=== PATIENT | male | born 1940 | race Two or more races ===

== ENCOUNTER → 2016-12-21 | Outpatient (CLI) | payer MEDICARE, OTHER | LOC: MW.CHIM 08:00 | PROVIDERS: ATTEND Internal Medicine | DX: I25.10 Atherosclerotic heart disease of native coronary artery without angina pectoris (principal); G47.33 Obstructive sleep apnea (adult) (pediatric); R94.39 Abnormal result of other cardiovascular function study | CPT/HCPCS: G0463 ==

== ENCOUNTER 2018-11-08 09:31 | Emergency (ER) | payer MEDICARE, OTHER ==
[2018-11-08 09:46] VITALS: BP 128/64
--- NOTE | 2018-11-08 10:05 | EDM.PDOC ---
ED HPI GENERAL MEDICAL PROBLEM - General Chief Complaint: Back Pain or Injury Stated Complaint: BACK PAIN Time Seen by Provider: 11/08/18 09:57 Source of Information: Reports: Patient History Limitations: Reports: No Limitations - History of Present Illness INITIAL COMMENTS - FREE TEXT/NARRATIVE: HISTORY AND PHYSICAL: History of present illness: Patient is a 77-year-old male who presents to the emergency room with complaints of low back spasms. He states this is been going on for approximately 2-3 weeks. He did see a primary care provider on 10/22/18 for this complaint and he has tried 2 different medications without any relief. 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 He denies any trauma, falls or injury. Denies any urinary or fecal incontinence. Denies any numbness or tingling to his distal extremities. Denies any weakness. Review of systems: As per history of present illness and below otherwise all systems reviewed and negative. Past medical history: As per history of present illness and as reviewed below otherwise noncontributory. Surgical history: As per history of present illness and as reviewed below otherwise noncontributory. Social history: See social history for further information Family history: As per history of present illness and as reviewed below otherwise noncontributory. Physical exam: General: Well-developed and well-nourished 77-year-old male. Alert and oriented. Nontoxic appearing and in no acute distress. HEENT: Atraumatic, normocephalic, pupils equal and reactive bilaterally, negative for conjunctival pallor or scleral icterus, mucous membranes moist, TMs normal bilaterally, patient does have a cochlear implant (normal patient variance), throat clear, neck supple, nontender, trachea midline. No drooling or trismus noted. No meningeal signs. No hot potato voice noted. Lungs: Clear to auscultation, breath sounds equal bilaterally, chest nontender. Heart: S1S2, regular rate and rhythm without overt murmur Abdomen: Soft, nondistended, nontender. Negative for masses or hepatosplenomegaly. Negative for costovertebral tenderness. Pelvis: Stable nontender. Genitourinary: Deferred. Rectal: Deferred. Skin: Intact, warm, dry. No lesions or rashes noted. Extremities: Atraumatic, negative for cords or calf pain. Neurovascular unremarkable. Neuro: Awake, alert, oriented. Cranial nerves II through XII unremarkable. Cerebellum unremarkable. Motor and sensory unremarkable throughout. Exam nonfocal. Notes: X-ray shows mild degenerative changes without acute findings. Patient had previously tried Celebrex and Robaxin. Patient reports that he had minimal relief. Patient felt no relief with the Norflex IM. We discussed treatment options, anti -inflammatory versus muscle relaxer versus narcotic pain medications. Risks of each class were discussed. He states that the anti-inflammatories and muscle relaxers haven't seemed to help is pain. Bow will be prescribed with education. I encouraged them to follow-up with their primary care provider in the next week. He may need physical therapy. The patient/ voices understanding, states she will make an appointment for him. They deny any further questions or concerns at this time. Diagnostics: Lumbar spine x-ray Therapeutics: Norflex IM Prescription: Medrol Dosepak Bow Impression: Lumbago with sciatica Plan: 1. Gentle heat, stretching and range of motion exercises. 2. Take your medications as directed. Tylenol and/or ibuprofen as needed for pain management. 3. Please follow-up with your primary caregiver next week. You may want to consider doing physical therapy if pain continues. Return to the ED as needed and as discussed. Definitive disposition and diagnosis as appropriate pending reevaluation and review of above. Lower Back Pain Score (Numeric/FACES): 9 - Related Data Allergies Allergy/AdvReac Type Severity Reaction Status Date / Time No Known Allergies Allergy Verified 11/08/18 09:47 Home Meds: Home Meds Psyllium Husk [Metamucil] 1 dose PO DAILY 09/24/15 [History] Aspirin 1 tab PO DAILY 11/08/18 [History] Clopidogrel [Plavix] 75 mg PO DAILY 11/08/18 [History] Losartan [Cozaar] 12.5 mg PO DAILY 11/08/18 [History] Potassium Chloride 1 tab PO DAILY 11/08/18 [History] atorvaSTATin [Lipitor] 40 mg PO DAILY 11/08/18 [History] Past Medical History HEENT History: Reports: Hard of Hearing Other HEENT History: cochlear implant R side Cardiovascular History: Reports: High Cholesterol, Hypertension, Stents Respiratory History: Reports: Sleep Apnea Gastrointestinal History: Reports: Diverticulosis, GERD Genitourinary History: Reports: Renal Calculus Musculoskeletal History: Reports: None Neurological History: Reports: None Psychiatric History: Reports: None Endocrine/Metabolic History: Reports: None Hematologic History: Reports: None Immunologic History: Reports: None Oncologic (Cancer) History: Reports: None Dermatologic History: Reports: None - Infectious Disease History Infectious Disease History: Reports: Chicken Pox, Measles - Past Surgical History Head Surgeries/Procedures: Reports: None Social & Family History - Family History Family Medical History: Noncontributory Cardiac: Reports: CAD, Hypertension, [place] Other Cardiac Family History: brothers secondary to coronary artery disease GI: Reports: None : Reports: None - Tobacco Use Smoking Status *Q: Never Smoker - Caffeine Use Caffeine Use: Reports: None - Recreational Drug Use Recreational Drug Use: No ED ROS GENERAL - Review of Systems Review Of Systems: ROS reveals no pertinent complaints other than HPI. ED EXAM,LOWER BACK PAIN/INJURY - Physical Exam Exam: See Below (See dictation) Course - Vital Signs Last Recorded V/S: Last Vital Signs Temp 98.7 F 11/08/18 09:43 Pulse 72 11/08/18 09:43 Resp 16 11/08/18 09:43 BP 128/64 11/08/18 09:43 Pulse Ox 96 11/08/18 09:43 - Orders/Labs/Meds Meds: Medications Discontinued Medications Generic Name Dose Route Start Last Admin Trade Name Kylee PRN Reason Stop Dose Admin Orphenadrine Citrate 60 mg 11/08/18 10:05 11/08/18 10:41 Norflex IM 11/08/18 10:06 60 mg NOW STA Administration Departure - Departure Time of Disposition: 11:18 Disposition: Home, Self-Care 01 Clinical Impression: Lumbago with sciatica Qualifiers: Chronicity: unspecified Back pain laterality: bilateral Sciatica laterality: bilateral sciatica Qualified Code(s): M54.42 - Lumbago with sciatica, left side - Discharge Information Instructions: Back Pain, Adult, [id number] Referrals: Maisha Pearson PA [Primary Care Provider] - Forms: ED Department Discharge Additional Instructions: The following information is given to patients seen in the emergency department who are being discharged to home. This information is to outline your options for follow-up care. We provide all patients seen in our emergency department with a follow-up referral. The need for follow-up, as well as the timing and circumstances, are variable depending upon the specifics of your emergency department visit. If you don't have a primary care physician on staff, we will provide you with a referral. We always advise you to contact your personal physician following an emergency department visit to inform them of the circumstance of the visit and for follow-up with them and/or the need for any referrals to a consulting specialist. The emergency department will also refer you to a specialist when appropriate. This referral assures that you have the opportunity for follow-up care with a specialist. All of these measure are taken in an effort to provide you with optimal care, which includes your follow-up. Under all circumstances we always encourage you to contact your private physician who remains a resource for coordinating your care. When calling for follow-up care, please make the office aware that this follow-up is from your recent emergency room visit. If for any reason you are refused follow-up, please contact the [facility] Emergency Department at and asked to speak to the emergency department charge nurse. [facility] [address] [place] [id number] [place] [address] 1. Gentle heat, stretching and range of motion exercises. 2. Take your medications as directed. Tylenol and/or ibuprofen as needed for pain management. 3. Please follow-up with your primary caregiver next week. You may want to consider doing physical therapy if pain continues. Return to the ED as needed and as discussed.
--- NOTE | 2018-11-08 11:00 | CR ---
EXAMINATION: Lumbar spine HISTORY: Pain COMPARISON: None TECHNIQUE: AP and lateral views FINDINGS: The lumbar spinal alignment is normal. Vertebral body heights appear maintained. Disc spaces are grossly preserved. Mild marginal osteophyte formation is noted. Mild facet arthritic changes noted. SI joints are symmetric. Mild vascular calcifications. IMPRESSION: 1. Mild degenerative changes without acute findings.
== END 2018-11-08 11:53 | disposition home or self-care (01) ==
LOC: MW.ED 09:31
DX: M54.42 Lumbago with sciatica, left side (principal); I10 Essential (primary) hypertension; Z79.899 Other long term (current) drug therapy; Z79.82 Long term (current) use of aspirin
CPT/HCPCS: 72100; 96372; 99283; J2360

== ENCOUNTER 2019-03-27 08:58 | Observation (INO) | payer MEDICARE, OTHER ==
[2019-03-27] MEDS ORDERED: Sodium Chloride 0.9% 2.5 ML Syringe FLUSH PRN (09:01)
[2019-03-27] MEDS ORDERED: Aspirin 81 MG Tab.Chew PO ONE (09:01)
[2019-03-27] MEDS ORDERED: Nitroglycerin 0.4 MG Tab.SL SL PRN (09:01)
[2019-03-27] MEDS ORDERED: Sodium Chloride 0.9% 10 ML Syringe FLUSH PRN (09:01)
[2019-03-27] MEDS ORDERED: Morphine 2 MG/ML Syringe IVPUSH ONE (09:23)
[2019-03-27] MEDS ORDERED: Ondansetron 4 MG/2 ML SDV IVPUSH ONE ×2 (09:24→09:49)
[2019-03-27 09:43] LABS: CHLORIDE,CL 103 mmol/L (98-107); SODIUM,NA 136 mmol/L (136-148)
[2019-03-27] MEDS ORDERED: Sodium Chloride 0.9% 250 ML IV SCH (09:45)
--- NOTE | 2019-03-27 09:48 | EDM.PDOC ---
ED HPI GENERAL MEDICAL PROBLEM - General Chief Complaint: Chest Pain Stated Complaint: CHEST PAIN Time Seen by Provider: 03/27/19 08:58 Source of Information: Reports: Patient History Limitations: Reports: No Limitations - History of Present Illness INITIAL COMMENTS - FREE TEXT/NARRATIVE: History of present illness: []She started having left sided chest pain one hour prior to arrival. Patient was at work when the pain started some sternal nonradiating pressure and sharp in nature. He stated he had mild shortness of breath with the pain but denies any dizziness or syncope. Patient has been seeing a chiropractor adjusting his back and neck past week but states he is not had any radiation of pain or chest pain associated with this type of treatment. He denies having chest pain with breathing and states he has not had any recent illnesses. Review of systems: As per history of present illness and below otherwise all systems reviewed and negative. Past medical history: As per history of present illness and as reviewed below otherwise noncontributory. Surgical history: As per history of present illness and as reviewed below otherwise noncontributory. Social history: No reported history of drug or alcohol abuse. Family history: As per history of present illness and as reviewed below otherwise noncontributory. Physical exam: General: Well developed, well nourished in NAD HEENT: Atraumatic, normocephalic, pupils reactive, negative for conjunctival pallor or scleral icterus, mucous membranes moist, throat clear, neck supple, nontender, trachea midline. Lungs: Clear to auscultation, breath sounds equal bilaterally, chest nontender. Heart: S1S2, regular, negative for clicks, rubs, or JVD. Abdomen: NABS, Soft, nondistended, nontender. Negative for masses or hepatosplenomegaly. Negative for costovertebral tenderness. Pelvis: Stable nontender. Genitourinary: Deferred. Rectal: Deferred. Extremities: Atraumatic, negative for cords or calf pain. Neurovascular unremarkable. Neuro: Awake, alert, oriented. Cranial nerves II through XII unremarkable. Cerebellum unremarkable. Motor and sensory unremarkable throughout. Exam nonfocal. Skin:warm and dry Diagnostics: EKG, chest x-ray, CBC, chemistry, troponin Therapeutics: Aspirin, nitroglycerin ED Course: Stable Impression: Chest pain Prescriptions: None Plan: Admit for chest pain Definitive disposition and diagnosis as appropriate pending reevaluation and review of above. chest Pain Score (Numeric/FACES): 5 - Related Data Allergies Allergy/AdvReac Type Severity Reaction Status Date / Time No Known Allergies Allergy Verified 11/08/18 09:47 Home Meds: Home Meds Psyllium Husk [Metamucil] 1 dose PO ASDIRECTED 09/24/15 [History] Aspirin 1 tab PO BEDTIME 11/08/18 [History] Clopidogrel [Plavix] 75 mg PO DAILY 11/08/18 [History] Losartan [Cozaar] 12.5 mg PO DAILY 11/08/18 [History] atorvaSTATin [Lipitor] 40 mg PO BEDTIME 11/08/18 [History] Past Medical History HEENT History: Reports: Hard of Hearing Other HEENT History: cochlear implant R side Cardiovascular History: Reports: High Cholesterol, Hypertension, Stents Respiratory History: Reports: Sleep Apnea Gastrointestinal History: Reports: Diverticulosis, GERD Genitourinary History: Reports: Renal Calculus Musculoskeletal History: Reports: None Neurological History: Reports: None Psychiatric History: Reports: None Endocrine/Metabolic History: Reports: None Hematologic History: Reports: None Immunologic History: Reports: None Oncologic (Cancer) History: Reports: None Dermatologic History: Reports: None - Infectious Disease History Infectious Disease History: Reports: Chicken Pox, Measles - Past Surgical History Head Surgeries/Procedures: Reports: None Social & Family History - Family History Family Medical History: Noncontributory Cardiac: Reports: CAD, Hypertension, [place] Other Cardiac Family History: brothers secondary to coronary artery disease GI: Reports: None : Reports: None - Tobacco Use Smoking Status *Q: Never Smoker - Caffeine Use Caffeine Use: Reports: None - Recreational Drug Use Recreational Drug Use: No ED ROS GENERAL - Review of Systems Review Of Systems: ROS reveals no pertinent complaints other than HPI. ED EXAM, GENERAL - Physical Exam Exam: See Below (The history of present illness) Course - Vital Signs Last Recorded V/S: Last Vital Signs Temp 97 F 03/27/19 09:03 Pulse 67 03/27/19 09:03 Resp 18 03/27/19 09:03 BP 147/81 H 03/27/19 09:16 Pulse Ox 96 03/27/19 09:03 - Orders/Labs/Meds Orders: Active Orders 24 hr Category Date Time Status Patient Status [ADT] Stat ADT 03/27/19 09:48 Active Cardiac Monitoring [RC] Q8H Care 03/27/19 09:01 Active Nitroglycerin [Nitrostat] Med 03/27/19 09:01 Active 0.4 mg SL Q5M PRN Sodium Chloride 0.9% [Saline Flush] Med 03/27/19 09:01 Active 10 ml FLUSH ASDIRECTED PRN Sodium Chloride 0.9% [Saline Flush] Med 03/27/19 09:01 Active 2.5 ml FLUSH ASDIRECTED PRN Saline Lock Insert [OM.PC] Stat Oth 03/27/19 09:01 Ordered Medication Orders Acetaminophen (Tylenol) 650 mg PO Q4H PRN PRN Reason: Pain (mild 1-3) Heparin Sodium (Porcine) (Heparin Sodium) 5,000 units SUBCUT Q12H NEEMA Last Admin: 03/27/19 11:52 Dose: 5,000 units Nitroglycerin (Nitrostat) 0.4 mg SL Q5M PRN PRN Reason: Chest Pain Last Admin: 03/27/19 09:16 Dose: 0.4 mg Ondansetron HCl (Zofran Odt) 4 mg PO Q4H PRN PRN Reason: nausea, able to take PO Sodium Chloride (Saline Flush) 10 ml FLUSH ASDIRECTED PRN PRN Reason: Keep Vein Open Last Admin: 03/27/19 09:19 Dose: 10 ml Sodium Chloride (Saline Flush) 2.5 ml FLUSH ASDIRECTED PRN PRN Reason: Keep Vein Open Last Admin: 03/27/19 09:19 Dose: 2.5 ml Labs: Laboratory Tests 03/27/19 03/27/19 03/27/19 Range/Units 09:07 09:07 09:07 WBC 7.26 (4.0-11.0) K/uL RBC 4.74 (4.50-5.90) M/uL Hgb 14.2 (13.0-17.0) g/dL Hct 44.7 (38.0-50.0) % MCV 94.3 (80.0-98.0) fL MCH 30.0 (27.0-32.0) pg MCHC 31.8 (31.0-37.0) g/dL RDW Std Deviation 47.0 (28.0-62.0) fl RDW Coeff of Sonya 14 (11.0-15.0) % Plt Count 199 (150-400) K/uL MPV 10.60 (7.40-12.00) fL Neut % (Auto) 64.6 (48.0-80.0) % Lymph % (Auto) 22.3 (16.0-40.0) % [place] % (Auto) 8.1 (0.0-15.0) % Eos % (Auto) 4.3 (0.0-7.0) % Baso % (Auto) 0.7 (0.0-1.5) % Neut # (Auto) 4.7 (1.4-5.7) K/uL Lymph # (Auto) 1.6 (0.6-2.4) K/uL [place] # (Auto) 0.6 (0.0-0.8) K/uL Eos # (Auto) 0.3 (0.0-0.7) K/uL Baso # (Auto) 0.1 (0.0-0.1) K/uL Nucleated RBC % 0.0 /100WBC Nucleated RBCs # 0 K/uL Sodium 136 (136-148) mmol/L Potassium 4.9 (3.5-5.1) mmol/L Chloride 103 (98-107) mmol/L Carbon Dioxide 29.8 (21.0-32.0) mmol/L BUN 25 H (7.0-18.0) mg/dL Creatinine 1.0 (0.8-1.3) mg/dL Est Cr Clr Drug Dosing 50.16 mL/min Estimated GFR (MDRD) > 60.0 ml/min Glucose 104 (74-106) mg/dL Hemoglobin A1c 6.4 H (4.5-6.2) % Calcium 9.2 (8.5-10.1) mg/dL Total Bilirubin 0.4 (0.2-1.0) mg/dL AST 23 (15-37) IU/L ALT 20 (14-63) IU/L Alkaline Phosphatase 97 (46-116) U/L Troponin I < 0.050 (0.000-0.056) ng/mL Total Protein 8.1 (6.4-8.2) g/dL Albumin 4.1 (3.4-5.0) g/dL Globulin 4.0 (2.6-4.0) g/dL Albumin/Globulin Ratio 1.0 (0.9-1.6) Meds: Medications Generic Name Dose Route Start Last Admin Trade Name Thomq PRN Reason Stop Dose Admin Acetaminophen 650 mg 03/27/19 10:44 Tylenol PO Q4H PRN Pain (mild 1-3) Heparin Sodium (Porcine) 5,000 units 03/27/19 10:45 03/27/19 11:52 Heparin Sodium SUBCUT 5,000 units Q12H NEEMA Administration Nitroglycerin 0.4 mg 03/27/19 09:01 03/27/19 09:16 Nitrostat SL 0.4 mg Q5M PRN Administration Chest Pain Ondansetron HCl 4 mg 03/27/19 10:44 Zofran Odt PO Q4H PRN nausea, able to take PO Sodium Chloride 10 ml 03/27/19 09:01 03/27/19 09:19 Saline Flush FLUSH 10 ml ASDIRECTED PRN Administration Keep Vein Open Sodium Chloride 2.5 ml 03/27/19 09:01 03/27/19 09:19 Saline Flush FLUSH 2.5 ml ASDIRECTED PRN Administration Keep Vein Open Discontinued Medications Generic Name Dose Route Start Last Admin Trade Name Thomq PRN Reason Stop Dose Admin Aspirin 324 mg 03/27/19 09:01 03/27/19 09:14 Aspirin PO 03/27/19 09:02 324 mg ONETIME ONE Administration Al Hydroxide/Mg Hydroxide 15 0 ml 03/27/19 10:46 03/27/19 12:21 ml/ Lidocaine HCl 5 ml PO 03/27/19 10:47 5 each ONETIME ONE Administration Al Hydroxide/Mg Hydroxide 15 0 ml 03/27/19 12:15 ml/ Lidocaine HCl 5 ml PO 03/27/19 12:16 ONETIME ONE Sodium Chloride 250 mls @ 999 mls/hr 03/27/19 09:45 03/27/19 09:47 Normal Saline IV 999 mls/hr STAT NEEMA Administration Morphine Sulfate 2 mg 03/27/19 09:23 03/27/19 09:57 Morphine IVPUSH 03/27/19 09:24 2 mg ONETIME ONE Administration Ondansetron HCl 4 mg 03/27/19 09:24 03/27/19 09:31 Zofran IVPUSH 03/27/19 09:25 4 mg ONETIME ONE Administration Ondansetron HCl 4 mg 03/27/19 09:49 03/27/19 09:53 Zofran IVPUSH 03/27/19 09:50 4 mg ONETIME ONE Administration Departure - Departure Time of Disposition: 17:00 Disposition: Refer to Observation Condition: Good Clinical Impression: Chest pain Qualifiers: Chest pain type: other chest pain Qualified Code(s): R07.89 - Other chest pain - My Orders Last 24 Hours: My Active Orders 03/27/19 09:01 Cardiac Monitoring [RC] Q8H Nitroglycerin [Nitrostat] 0.4 mg SL Q5M PRN Sodium Chloride 0.9% [Saline Flush] 10 ml FLUSH ASDIRECTED PRN Sodium Chloride 0.9% [Saline Flush] 2.5 ml FLUSH ASDIRECTED PRN Saline Lock Insert [OM.PC] Stat 03/27/19 09:48 Patient Status [ADT] Stat - Assessment/Plan Last 24 Hours: My Active Orders 03/27/19 09:01 Cardiac Monitoring [RC] Q8H Nitroglycerin [Nitrostat] 0.4 mg SL Q5M PRN Sodium Chloride 0.9% [Saline Flush] 10 ml FLUSH ASDIRECTED PRN Sodium Chloride 0.9% [Saline Flush] 2.5 ml FLUSH ASDIRECTED PRN Saline Lock Insert [OM.PC] Stat 03/27/19 09:48 Patient Status [ADT] Stat
--- NOTE | 2019-03-27 10:09 | CR ---
EXAMINATION: Portable chest radiograph. HISTORY: Shortness of breath. Comparison: 04/03/2016 FINDINGS: The trachea is midline. The cardiomediastinal silhouette is within normal limits. Trace left basilar atelectasis and/or infiltrate. No pleural effusion. Vague 11 mm nodular area within the right lung base. No pleural effusion or pneumothorax. Osseous structures appear unremarkable. IMPRESSION: 1. Trace left basilar atelectasis and/or infiltrate. 2. Possible 11 mm nodule within the left lung base, nonurgent chest CT follow-up may be beneficial.
[2019-03-27] MEDS ORDERED: Ondansetron 4 MG Tab.DIS PO PRN (10:44)
[2019-03-27] MEDS ORDERED: Acetaminophen 325 MG Tab PO PRN (10:44)
[2019-03-27] MEDS ORDERED: Alum Hydrox/Mag Hydrox/Simeth 15 ML, Lidocaine 2% 5 ML PO ONE ×4 (10:46→12:15)
--- NOTE | 2019-03-27 10:49 | PCM.HP ---
<Samantha Anand M - Last Filed: 03/27/19 10:53> H&P History of Present Illness - General Date of Service: 03/27/19 Admit Problem/Dx: Admission Diagnosis/Problem Admission Diagnosis/Problem Chest pain Source of Information: Patient History Limitations: Reports: No Limitations - History of Present Illness Initial Comments - Free Text/Narative: This 78 year old male with pmh of CAD with stents in distal and proximal LAD, HTN, and R sided cochlear implant presented to the ED this morning after he started having chest pain at work. 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 He reports the pain as mid sternal with some pressure. No shortness of breath or radiation of the pain. No nausea or diaphoresis. He reports he has been getting chiropractic adjustments quite intensively recently due to back pain. Most recent was on Sunday or Sunday. He denies orthopnea. He is able to climb a flight of stairs with out chest pain or dyspnea. He is quite active with work. He has been feeling well recently no acute illness, fevers or sinus congestion. No breathing concerns. He denies alcohol use or tobacco use. He has not seen Dr Flores or other estate attorney in over a year. He continues to take his Plavix and ASA along with statin and Losartan. Last stress test and ECHO were over 2 years ago. In the ED, labwork WNL. Troponin negative. EKG SR with no acute ST elevation or changes. CXR revealed trace L basilar atelectasis versus infiltrate. Possible 11 mm nodule within the left lung base, non urgent CT recommended. He ws give nitro x 1, Morphine ASA in the ED. He reports pain subsided on its own and none of the medicines really helped. He will be admitted observation for chest pain rule out ACS. PCP, GRECIA Enriquez chest Pain Score (Numeric/FACES): 5 - Related Data Allergies/Adverse Reactions: Allergies Allergy/AdvReac Type Severity Reaction Status Date / Time No Known Allergies Allergy Verified 11/08/18 09:47 Home Medications: Home Meds Psyllium Husk [Metamucil] 1 dose PO ASDIRECTED 09/24/15 [History] Aspirin 1 tab PO BEDTIME 11/08/18 [History] Clopidogrel [Plavix] 75 mg PO DAILY 11/08/18 [History] Losartan [Cozaar] 12.5 mg PO DAILY 11/08/18 [History] atorvaSTATin [Lipitor] 40 mg PO BEDTIME 11/08/18 [History] Past Medical History HEENT History: Reports: Hard of Hearing Other HEENT History: cochlear implant R side Cardiovascular History: Reports: High Cholesterol, Hypertension, Stents. Denies : Afib, Blood Clots/VTE/DVT Respiratory History: Reports: Sleep Apnea (Uses CPAP). Denies: COPD Gastrointestinal History: Reports: Diverticulosis, GERD Genitourinary History: Reports: Renal Calculus Musculoskeletal History: Reports: None Neurological History: Reports: None. Denies: CVA, TIA Psychiatric History: Reports: None Endocrine/Metabolic History: Reports: None. Denies: Diabetes, Type II Hematologic History: Reports: None Immunologic History: Reports: None Oncologic (Cancer) History: Reports: None Dermatologic History: Reports: None - Infectious Disease History Infectious Disease History: Reports: Chicken Pox, Measles - Past Surgical History Head Surgeries/Procedures: Reports: None HEENT Surgical History: Reports: Other (See Below) (cochlear implant) Social & Family History - Family History Family Medical History: Noncontributory Cardiac: Reports: CAD, Hypertension, [place] Other Cardiac Family History: brothers secondary to coronary artery disease GI: Reports: None : Reports: None - Tobacco Use Smoking Status *Q: Never Smoker - Caffeine Use Caffeine Use: Reports: None - Alcohol Use Alcohol Use History: No - Recreational Drug Use Recreational Drug Use: No - Living Situation & Occupation Living situation: Reports: Occupation: Employed ([employer] at [employer]) H&P Review of Systems - Review of Systems: Review Of Systems: See Below General: Reports: No Symptoms. Denies: Fever, Chills, Malaise HEENT: Reports: No Symptoms. Denies: Headaches, Hearing Changes, Sinus Congestion Pulmonary: Denies: Shortness of Breath, Wheezing, Cough, Sputum Cardiovascular: Reports: Chest Pain (subsided now, was midsternal. ). Denies: Palpitations, Dyspnea on Exertion, Orthopnea, Edema, Syncope Gastrointestinal: Reports: No Symptoms. Denies: Abdominal Pain, Black Stool, Bloody Stool, Nausea, Vomiting Genitourinary: Reports: No Symptoms. Denies: Dysuria, Frequency, Burning, Pain Musculoskeletal: Reports: No Symptoms Skin: Reports: No Symptoms Psychiatric: Reports: No Symptoms Neurological: Reports: No Symptoms Hematologic/Lymphatic: Reports: No Symptoms Immunologic: Reports: No Symptoms Exam - Exam Exam: See Below - Vital Signs Vital Signs: Last Vital Signs Temp 97 F 03/27/19 09:03 Pulse 67 03/27/19 09:03 Resp 18 03/27/19 09:03 BP 147/81 H 03/27/19 09:16 Pulse Ox 96 03/27/19 09:03 Weight: 86.183 kg - Exam General: Alert, Oriented, Cooperative HEENT: Conjunctiva Clear, EACs Clear, Other (cochlear implant to R) Neck: Supple, Trachea Midline. No: JVD Lungs: Clear to Auscultation, Normal Respiratory Effort Cardiovascular: Regular Rate, Regular Rhythm, Normal S1, Normal S2 Back Exam: Normal Inspection, Full Range of Motion Extremities: Normal Inspection, Normal Range of Motion, Non-Tender, No Pedal Edema Neuro Extensive - Mental Status: Alert, Oriented x3 Neuro Extensive - Motor, Sensory, Reflexes: CN II-XII Intact Psychiatric: Alert, Normal Affect, Normal Mood - Patient Data Lab Results Last 24 hrs: Laboratory Results - last 24 hr 03/27/19 03/27/19 Range/Units 09:07 09:07 WBC 7.26 (4.0-11.0) K/uL RBC 4.74 (4.50-5.90) M/uL Hgb 14.2 (13.0-17.0) g/dL Hct 44.7 (38.0-50.0) % MCV 94.3 (80.0-98.0) fL MCH 30.0 (27.0-32.0) pg MCHC 31.8 (31.0-37.0) g/dL RDW Std Deviation 47.0 (28.0-62.0) fl RDW Coeff of Sonya 14 (11.0-15.0) % Plt Count 199 (150-400) K/uL MPV 10.60 (7.40-12.00) fL Neut % (Auto) 64.6 (48.0-80.0) % Lymph % (Auto) 22.3 (16.0-40.0) % Burke % (Auto) 8.1 (0.0-15.0) % Eos % (Auto) 4.3 (0.0-7.0) % Baso % (Auto) 0.7 (0.0-1.5) % Neut # (Auto) 4.7 (1.4-5.7) K/uL Lymph # (Auto) 1.6 (0.6-2.4) K/uL [place] # (Auto) 0.6 (0.0-0.8) K/uL Eos # (Auto) 0.3 (0.0-0.7) K/uL Baso # (Auto) 0.1 (0.0-0.1) K/uL Nucleated RBC % 0.0 /100WBC Nucleated RBCs # 0 K/uL Sodium 136 (136-148) mmol/L Potassium 4.9 (3.5-5.1) mmol/L Chloride 103 (98-107) mmol/L Carbon Dioxide 29.8 (21.0-32.0) mmol/L BUN 25 H (7.0-18.0) mg/dL Creatinine 1.0 (0.8-1.3) mg/dL Est Cr Clr Drug Dosing 50.16 mL/min Estimated GFR (MDRD) > 60.0 ml/min Glucose 104 (74-106) mg/dL Calcium 9.2 (8.5-10.1) mg/dL Total Bilirubin 0.4 (0.2-1.0) mg/dL AST 23 (15-37) IU/L ALT 20 (14-63) IU/L Alkaline Phosphatase 97 (46-116) U/L Troponin I < 0.050 (0.000-0.056) ng/mL Total Protein 8.1 (6.4-8.2) g/dL Albumin 4.1 (3.4-5.0) g/dL Globulin 4.0 (2.6-4.0) g/dL Albumin/Globulin Ratio 1.0 (0.9-1.6) Result Diagrams: 03/27/19 09:07 03/27/19 09:07 EKG INTERPRETATION EKG Date: 03/27/19 Rhythm: NSR Rate (Beats/Min): 70 P-Wave: Present QRS: Normal ST-T: Normal QT: Normal *Q Meaningful Use (ADM) - VTE Risk Assess *Q Each Risk Factor Represents 1 Point: Obesity ( BMI > 25 kg/m2) Total Score 1 Point Risk Factors: 1 Each Risk Factor Represents 2 Points: None Total Score 2 Point Risk Factors: 0 Each Risk Factor Represents 3 Points: Age 75 Years or Greater Total Score 3 Point Risk Factors: 3 Each Risk Factor Represents 5 Points: None Total Score 5 Point Risk Factors: 0 Venous Thromboembolism Risk Factor Score *Q: 4 - Problem List (1) Chest pain SNOMED Code(s): 17281020 ICD Code: R07.9 - CHEST PAIN, UNSPECIFIED Status: Acute Current Visit: Yes Qualifiers: Chest pain type: other chest pain Qualified Code(s): R07.89 - Other chest pain; R07.8 - Other chest pain (2) HTN (hypertension) SNOMED Code(s): 22548002 ICD Code: I10 - ESSENTIAL (PRIMARY) HYPERTENSION Status: Chronic Current Visit: Yes Qualifiers: Hypertension type: essential hypertension Qualified Code(s): I10 - Essential (primary) hypertension (3) CAD (coronary artery disease) SNOMED Code(s): 51394877 ICD Code: I25.10 - ATHSCL HEART DISEASE OF [place] CORONARY ARTERY W/O ANG PCTRS Status: Chronic Current Visit: Yes Qualifiers: Coronary Disease-Associated Artery/Lesion type: [place] artery [place] vs. transplanted heart: [place] heart Associated angina: without angina Qualified Code(s): I25.10 - Atherosclerotic heart disease of [place] coronary artery without angina pectoris (4) Presence of stent in LAD coronary artery SNOMED Code(s): 406616598633615, 540330434134891 ICD Code: Z95.5 - PRESENCE OF CORONARY ANGIOPLASTY IMPLANT AND GRAFT Status : Chronic Current Visit: Yes (5) Hiatal hernia SNOMED Code(s): 46441935 ICD Code: K44.9 - DIAPHRAGMATIC HERNIA WITHOUT OBSTRUCTION OR GANGRENE Status: Chronic Current Visit: Yes (6) Cochlear implant in place SNOMED Code(s): 070682242 ICD Code: Z96.21 - COCHLEAR IMPLANT STATUS Status: Chronic Priority: Low Current Visit: No (7) Obstructive sleep apnea on CPAP SNOMED Code(s): 79644179 ICD Code: G47.33 - OBSTRUCTIVE SLEEP APNEA (ADULT) (PEDIATRIC) Status: Chronic Priority: Medium Current Visit: No Problem List Initiated/Reviewed/Updated: Yes Orders Last 24hrs: Active Orders 24 hr Category Date Time Status Patient Status [ADT] Stat ADT 03/27/19 09:48 Active Cardiac Monitoring [RC] . DIRECTED Care 03/27/19 09:01 Active Intake and Output [RC] QSHIFT Care 03/27/19 10:44 Ordered Oxygen Therapy [RC] PRN Care 03/27/19 10:44 Ordered Telemetry Monitoring [Cardiac Monitoring] [RC] . Care 03/27/19 10:43 Ordered DIRECTED Up to Chair [RC] ASDIRECTED Care 03/27/19 10:44 Ordered VTE/DVT Education [RC] PER UNIT ROUTINE Care 03/27/19 10:44 Ordered Vital Signs [RC] Q4H Care 03/27/19 10:44 Ordered Heart Healthy Diet [DIET] Diet 03/27/19 Lunch Ordered Echo Comp wo Cont [US] Routine Exams 03/27/19 10:47 Ordered GLYCOSYLATED HEMOGLOBIN,HGBA1C [CHEM] Routine Lab 03/27/19 10:47 Ordered LIPID PANEL [CHEM] AM Lab 03/28/19 05:11 Ordered TROPONIN I [CHEM] Q6H Lab 03/27/19 15:00 Ordered TROPONIN I [CHEM] Q6H Lab 03/27/19 21:00 Ordered Acetaminophen [Tylenol] Med 03/27/19 10:44 Ordered 650 mg PO Q4H PRN GI Cocktail 20 ML PO x 1 Med 03/27/19 10:46 Ordered Alum Hydrox/Mag Hydrox/Simeth [Mag-Al Plus] 15 ml Lidocaine 2% [Xylocaine 2% Viscous] 5 ml PO ONETIME Heparin Sodium Med 03/27/19 10:45 Ordered 5,000 units SUBCUT Q12H Nitroglycerin [Nitrostat] Med 03/27/19 09:01 Active 0.4 mg SL Q5M PRN Ondansetron [Zofran ODT] Med 03/27/19 10:44 Ordered 4 mg PO Q4H PRN Sodium Chloride 0.9% [Normal Saline] 250 ml Med 03/27/19 09:45 Active IV STAT Sodium Chloride 0.9% [Saline Flush] Med 03/27/19 09:01 Active 10 ml FLUSH ASDIRECTED PRN Sodium Chloride 0.9% [Saline Flush] Med 03/27/19 09:01 Active 2.5 ml FLUSH ASDIRECTED PRN Saline Lock Insert [OM.PC] Stat Oth 03/27/19 09:01 Ordered Resuscitation Status Routine Resus Stat 03/27/19 10:44 Ordered Medication Orders Acetaminophen (Tylenol) 650 mg PO Q4H PRN PRN Reason: Pain (mild 1-3) Al Hydroxide/Mg Hydroxide 15 (ml/ Lidocaine HCl 5 ml) 0 ml PO ONETIME ONE Stop: 03/27/19 10:47 Heparin Sodium (Porcine) (Heparin Sodium) 5,000 units SUBCUT Q12H NEEMA Sodium Chloride (Normal Saline) 250 mls @ 999 mls/hr IV STAT NEEMA Last Admin: 03/27/19 09:47 Dose: 999 mls/hr Nitroglycerin (Nitrostat) 0.4 mg SL Q5M PRN PRN Reason: Chest Pain Last Admin: 03/27/19 09:16 Dose: 0.4 mg Ondansetron HCl (Zofran Odt) 4 mg PO Q4H PRN PRN Reason: nausea, able to take PO Sodium Chloride (Saline Flush) 10 ml FLUSH ASDIRECTED PRN PRN Reason: Keep Vein Open Last Admin: 03/27/19 09:19 Dose: 10 ml Sodium Chloride (Saline Flush) 2.5 ml FLUSH ASDIRECTED PRN PRN Reason: Keep Vein Open Last Admin: 03/27/19 09:19 Dose: 2.5 ml Assessment/Plan Comment:: This 78 year old male admitted with chest pain rule out ACS 1. Chest pain: Monitor on telemetry. Trend troponins. Will obtain ECHO due to history. Monitor lipid panel and A1c. Will trial GI cocktail to rule out GERD symptoms secondary to hiatal hernia. Spoke with Dr Flores regarding admission and followup stress test, he will see him in the clinic first then arrange stress test. 2. HTN: Stable. Will monitor. Continue Losartan 3. CAD: Continue Plavix ASA. Statin VTE prophylaxis: Heparin Dispo: 1 day. <Ranulfo Steward - Last Filed: 03/27/19 13:19> H&P History of Present Illness - General Admit Problem/Dx: Admission Diagnosis/Problem Admission Diagnosis/Problem Chest pain I have seen and examined to patient independently of Samantha Anand CNP. I have discussed the case for care of this patient with her. I have reviewed and approve of the plan of care as outlined by COPY ROOM TECHNICIAN. Please see orders. Exam - Vital Signs Vital Signs: Last Vital Signs Temp 36.1 C 03/27/19 09:03 Pulse 67 03/27/19 09:03 Resp 18 03/27/19 09:03 BP 147/81 H 03/27/19 09:16 Pulse Ox 96 03/27/19 09:03 - Patient Data Lab Results Last 24 hrs: Laboratory Results - last 24 hr 03/27/19 03/27/19 03/27/19 Range/Units 09:07 09:07 09:07 WBC 7.26 (4.0-11.0) K/uL RBC 4.74 (4.50-5.90) M/uL Hgb 14.2 (13.0-17.0) g/dL Hct 44.7 (38.0-50.0) % MCV 94.3 (80.0-98.0) fL MCH 30.0 (27.0-32.0) pg MCHC 31.8 (31.0-37.0) g/dL RDW Std Deviation 47.0 (28.0-62.0) fl RDW Coeff of Sonya 14 (11.0-15.0) % Plt Count 199 (150-400) K/uL MPV 10.60 (7.40-12.00) fL Neut % (Auto) 64.6 (48.0-80.0) % Lymph % (Auto) 22.3 (16.0-40.0) % Burke % (Auto) 8.1 (0.0-15.0) % Eos % (Auto) 4.3 (0.0-7.0) % Baso % (Auto) 0.7 (0.0-1.5) % Neut # (Auto) 4.7 (1.4-5.7) K/uL Lymph # (Auto) 1.6 (0.6-2.4) K/uL Burke # (Auto) 0.6 (0.0-0.8) K/uL Eos # (Auto) 0.3 (0.0-0.7) K/uL Baso # (Auto) 0.1 (0.0-0.1) K/uL Nucleated RBC % 0.0 /100WBC Nucleated RBCs # 0 K/uL Sodium 136 (136-148) mmol/L Potassium 4.9 (3.5-5.1) mmol/L Chloride 103 (98-107) mmol/L Carbon Dioxide 29.8 (21.0-32.0) mmol/L BUN 25 H (7.0-18.0) mg/dL Creatinine 1.0 (0.8-1.3) mg/dL Est Cr Clr Drug Dosing 50.16 mL/min Estimated GFR (MDRD) > 60.0 ml/min Glucose 104 (74-106) mg/dL Hemoglobin A1c 6.4 H (4.5-6.2) % Calcium 9.2 (8.5-10.1) mg/dL Total Bilirubin 0.4 (0.2-1.0) mg/dL AST 23 (15-37) IU/L ALT 20 (14-63) IU/L Alkaline Phosphatase 97 (46-116) U/L Troponin I < 0.050 (0.000-0.056) ng/mL Total Protein 8.1 (6.4-8.2) g/dL Albumin 4.1 (3.4-5.0) g/dL Globulin 4.0 (2.6-4.0) g/dL Albumin/Globulin Ratio 1.0 (0.9-1.6) Urine Color Urine Appearance Urine pH (5.0-8.0) Ur Specific [place] (1.001-1.035) Urine Protein (NEGATIVE) mg/dL Urine Glucose (UA) (NEGATIVE) mg/dL Urine Ketones (NEGATIVE) mg/dL Urine Occult Blood (NEGATIVE) Urine Nitrite (NEGATIVE) Urine Bilirubin (NEGATIVE) Urine Urobilinogen (<2.0) EU/dL Ur Leukocyte Esterase (NEGATIVE) 03/27/19 Range/Units 10:50 WBC (4.0-11.0) K/uL RBC (4.50-5.90) M/uL Hgb (13.0-17.0) g/dL Hct (38.0-50.0) % MCV (80.0-98.0) fL MCH (27.0-32.0) pg MCHC (31.0-37.0) g/dL RDW Std Deviation (28.0-62.0) fl RDW Coeff of Sonya (11.0-15.0) % Plt Count (150-400) K/uL MPV (7.40-12.00) fL Neut % (Auto) (48.0-80.0) % Lymph % (Auto) (16.0-40.0) % [place] % (Auto) (0.0-15.0) % Eos % (Auto) (0.0-7.0) % Baso % (Auto) (0.0-1.5) % Neut # (Auto) (1.4-5.7) K/uL Lymph # (Auto) (0.6-2.4) K/uL [place] # (Auto) (0.0-0.8) K/uL Eos # (Auto) (0.0-0.7) K/uL Baso # (Auto) (0.0-0.1) K/uL Nucleated RBC % /100WBC Nucleated RBCs # K/uL Sodium (136-148) mmol/L Potassium (3.5-5.1) mmol/L Chloride (98-107) mmol/L Carbon Dioxide (21.0-32.0) mmol/L BUN (7.0-18.0) mg/dL Creatinine (0.8-1.3) mg/dL Est Cr Clr Drug Dosing mL/min Estimated GFR (MDRD) ml/min Glucose (74-106) mg/dL Hemoglobin A1c (4.5-6.2) % Calcium (8.5-10.1) mg/dL Total Bilirubin (0.2-1.0) mg/dL AST (15-37) IU/L ALT (14-63) IU/L Alkaline Phosphatase (46-116) U/L Troponin I (0.000-0.056) ng/mL Total Protein (6.4-8.2) g/dL Albumin (3.4-5.0) g/dL Globulin (2.6-4.0) g/dL Albumin/Globulin Ratio (0.9-1.6) Urine Color YELLOW Urine Appearance CLEAR Urine pH 6.0 (5.0-8.0) Ur Specific [place] 1.025 (1.001-1.035) Urine Protein NEGATIVE (NEGATIVE) mg/dL Urine Glucose (UA) NEGATIVE (NEGATIVE) mg/dL Urine Ketones NEGATIVE (NEGATIVE) mg/dL Urine Occult Blood NEGATIVE (NEGATIVE) Urine Nitrite NEGATIVE (NEGATIVE) Urine Bilirubin NEGATIVE (NEGATIVE) Urine Urobilinogen 0.2 (<2.0) EU/dL Ur Leukocyte Esterase NEGATIVE (NEGATIVE) Result Diagrams: 03/27/19 09:07 03/27/19 09:07 Orders Last 24hrs: Active Orders 24 hr Category Date Time Status Patient Status [ADT] Stat ADT 03/27/19 09:48 Active Cardiac Monitoring [RC] . DIRECTED Care 03/27/19 09:01 Active Communication Order [RC] ROUTINE Care 03/27/19 11:21 Active Intake and Output [RC] Q12H Care 03/27/19 10:44 Active Oxygen Therapy [RC] PRN Care 03/27/19 10:44 Active Telemetry Monitoring [Cardiac Monitoring] [RC] . Care 03/27/19 09:01 Active DIRECTED Up to Chair [RC] ASDIRECTED Care 03/27/19 10:44 Active VTE/DVT Education [RC] PER UNIT ROUTINE Care 03/27/19 10:44 Active Vital Signs [RC] Q4H Care 03/27/19 10:44 Active Consult to Welder Railcar Mechanic [CONS] Routine Cons 03/27/19 11:44 Active Heart Healthy Diet [DIET] Diet 03/27/19 Lunch Active Echo Comp wo Cont [US] Routine Exams 03/27/19 10:47 Ordered LIPID PANEL [CHEM] AM Lab 03/28/19 05:11 Ordered TROPONIN I [CHEM] Q6H Lab 03/27/19 15:00 Ordered TROPONIN I [CHEM] Q6H Lab 03/27/19 21:00 Ordered Acetaminophen [Tylenol] Med 03/27/19 10:44 Active 650 mg PO Q4H PRN Heparin Sodium Med 03/27/19 10:45 Active 5,000 units SUBCUT Q12H Nitroglycerin [Nitrostat] Med 03/27/19 09:01 Active 0.4 mg SL Q5M PRN Ondansetron [Zofran ODT] Med 03/27/19 10:44 Active 4 mg PO Q4H PRN Sodium Chloride 0.9% [Saline Flush] Med 03/27/19 09:01 Active 10 ml FLUSH ASDIRECTED PRN Sodium Chloride 0.9% [Saline Flush] Med 03/27/19 09:01 Active 2.5 ml FLUSH ASDIRECTED PRN Saline Lock Insert [OM.PC] Stat Oth 03/27/19 09:01 Ordered Resuscitation Status Routine Resus Stat 03/27/19 10:44 Ordered Medication Orders Acetaminophen (Tylenol) 650 mg PO Q4H PRN PRN Reason: Pain (mild 1-3) Heparin Sodium (Porcine) (Heparin Sodium) 5,000 units SUBCUT Q12H NEEMA Last Admin: 03/27/19 11:52 Dose: 5,000 units Nitroglycerin (Nitrostat) 0.4 mg SL Q5M PRN PRN Reason: Chest Pain Last Admin: 03/27/19 09:16 Dose: 0.4 mg Ondansetron HCl (Zofran Odt) 4 mg PO Q4H PRN PRN Reason: nausea, able to take PO Sodium Chloride (Saline Flush) 10 ml FLUSH ASDIRECTED PRN PRN Reason: Keep Vein Open Last Admin: 03/27/19 09:19 Dose: 10 ml Sodium Chloride (Saline Flush) 2.5 ml FLUSH ASDIRECTED PRN PRN Reason: Keep Vein Open Last Admin: 03/27/19 09:19 Dose: 2.5 ml
[2019-03-27 11:31] LABS: HEMOGLOBIN A1C 6.4 % (4.5-6.2)
[2019-03-27] MEDS: Heparin Sodium 5,000 Units/ML Vial SUBCUT SCH ×2 (11:52→22:39)
[2019-03-28 04:30] VITALS: BP 120/63
--- NOTE | 2019-03-28 08:40 | PCM.DCSUM1 ---
Addendum entered and electronically signed by Samantha Anand NP 03/28/19 12:11 : Discharge Summary - Hospital Course HPI Initial Comments: small 11 mm nodule noted on CT will need follow up non urgent CT with PCP. I explained this to patient and he is aware. Brief History: This 78 year old male with pmh of CAD with stents in distal and proximal LAD, HTN, and R sided cochlear implant presented to the ED this morning after he started having chest pain at work. 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 He reports the pain as mid sternal with some pressure. No shortness of breath or radiation of the pain. No nausea or diaphoresis. He reports he has been getting chiropractic adjustments quite intensively recently due to back pain. Most recent was on Sunday or Sunday. He denies orthopnea. He is able to climb a flight of stairs with out chest pain or dyspnea. He is quite active with work. He has been feeling well recently no acute illness, fevers or sinus congestion. No breathing concerns. He denies alcohol use or tobacco use. He has not seen Dr Flores or other sas sql developer in over a year. He continues to take his Plavix and ASA along with statin and Losartan. Last stress test and ECHO were over 2 years ago. In the ED, labwork WNL. Troponin negative. EKG SR with no acute ST elevation or changes. CXR revealed trace L basilar atelectasis versus infiltrate. Possible 11 mm nodule within the left lung base, non urgent CT recommended. He ws give nitro x 1, Morphine ASA in the ED. He reports pain subsided on its own and none of the medicines really helped. He will be admitted observation for chest pain rule out ACS. PCP, GRECIA Enriquez Diagnosis: Stroke: No - Discharge Data Discharge Date: 03/28/19 Discharge Disposition: Home, Self-Care 01 Condition: Good - Discharge Diagnosis/Problem(s) (1) Chest pain SNOMED Code(s): 49735346 ICD Code: R07.9 - CHEST PAIN, UNSPECIFIED Status: Acute Current Visit: Yes Qualifiers: Chest pain type: other chest pain Qualified Code(s): R07.89 - Other chest pain; R07.8 - Other chest pain (2) HTN (hypertension) SNOMED Code(s): 94907227 ICD Code: I10 - ESSENTIAL (PRIMARY) HYPERTENSION Status: Chronic Current Visit: Yes Qualifiers: Hypertension type: essential hypertension Qualified Code(s): I10 - Essential (primary) hypertension (3) CAD (coronary artery disease) SNOMED Code(s): 09383565 ICD Code: I25.10 - ATHSCL HEART DISEASE OF [place] CORONARY ARTERY W/O ANG PCTRS Status: Chronic Current Visit: Yes Qualifiers: Coronary Disease-Associated Artery/Lesion type: [place] artery [place] vs. transplanted heart: [place] heart Associated angina: without angina Qualified Code(s): I25.10 - Atherosclerotic heart disease of [place] coronary artery without angina pectoris (4) Presence of stent in LAD coronary artery SNOMED Code(s): 756326803990949, 009663179058037 ICD Code: Z95.5 - PRESENCE OF CORONARY ANGIOPLASTY IMPLANT AND GRAFT Status : Chronic Current Visit: Yes (5) Hiatal hernia SNOMED Code(s): 49570105 ICD Code: K44.9 - DIAPHRAGMATIC HERNIA WITHOUT OBSTRUCTION OR GANGRENE Status: Chronic Current Visit: Yes (6) Cochlear implant in place SNOMED Code(s): 190747847 ICD Code: Z96.21 - COCHLEAR IMPLANT STATUS Status: Chronic Priority: Low Current Visit: No (7) Obstructive sleep apnea on CPAP SNOMED Code(s): 76174052 ICD Code: G47.33 - OBSTRUCTIVE SLEEP APNEA (ADULT) (PEDIATRIC) Status: Chronic Priority: Medium Current Visit: No - Patient Summary/Data Consults: Consultations 03/27/19 11:44 Consult to Environmental Engineer [CONS] Routine - Patient Instructions Diet: Heart Healthy Diet Activity: No Strenuous Activities Showering/Bathing: May Shower Notify Provider of: Fever, Increased Pain, Swelling and Redness, Drainage, Nausea and/or Vomiting - Discharge Plan *PRESCRIPTION DRUG MONITORING PROGRAM REVIEWED*: Not Applicable *COPY OF PRESCRIPTION DRUG MONITORING REPORT IN PATIENT JEREMY: Not Applicable Prescriptions/Med Rec: Pantoprazole Sodium [Protonix] 40 mg PO DAILY #30 tablet. Home Medications: Home Meds Psyllium Husk [Metamucil] 1 dose PO ASDIRECTED 09/24/15 [History] Aspirin 1 tab PO BEDTIME 11/08/18 [History] Clopidogrel [Plavix] 75 mg PO DAILY 11/08/18 [History] Losartan [Cozaar] 12.5 mg PO DAILY 11/08/18 [History] atorvaSTATin [Lipitor] 40 mg PO BEDTIME 11/08/18 [History] Pantoprazole Sodium [Protonix] 40 mg PO DAILY #30 tablet. 03/28/19 [Rx] Oxygen Therapy Mode: Room Air Patient Handouts: Nonspecific Chest Pain, [id number], Pantoprazole tablets Referrals: Samy Flores MD [Physician] - 04/11/19 11:00 am - Discharge Summary/Plan Comment DC Time >30 min.: No - Patient Data Vitals - Most Recent: Last Vital Signs Temp 98.3 F 03/28/19 08:00 Pulse 100 03/28/19 08:00 Resp 14 03/28/19 08:00 BP 120/63 03/28/19 04:00 Pulse Ox 93 L 03/28/19 04:00 Weight - Most Recent: 86.183 kg I&O - Last 24 hours: Intake & Output 03/27/19 03/28/19 03/28/19 22:59 06:59 14:59 Intake Total 435 350 360 Output Total 225 325 200 Balance 210 25 160 Lab Results - Last 24 hrs: Laboratory Results - last 24 hr 03/27/19 03/27/19 03/28/19 Range/Units 15:07 20:52 05:23 Troponin I < 0.050 < 0.050 (0.000-0.056) ng/mL Triglycerides 51 (0-200) mg/dL Cholesterol 103 (50-200) mg/dL LDL Cholesterol, Calc 46 L (60-180) mg/dL VLDL Cholesterol 10 (5-55) mg/dL HDL Cholesterol 47 (40-60) mg/dL Cholesterol/HDL Ratio 2.2 L (3.3-6.0) Med Orders - Current: Current Medications Acetaminophen (Tylenol) 650 mg PO Q4H PRN PRN Reason: Pain (mild 1-3) Last Admin: 03/27/19 22:40 Dose: 650 mg Heparin Sodium (Porcine) (Heparin Sodium) 5,000 units SUBCUT Q12H NEEMA Last Admin: 03/28/19 11:04 Dose: Not Given Nitroglycerin (Nitrostat) 0.4 mg SL Q5M PRN PRN Reason: Chest Pain Last Admin: 03/27/19 09:16 Dose: 0.4 mg Ondansetron HCl (Zofran Odt) 4 mg PO Q4H PRN PRN Reason: nausea, able to take PO Sodium Chloride (Saline Flush) 10 ml FLUSH ASDIRECTED PRN PRN Reason: Keep Vein Open Last Admin: 03/27/19 09:19 Dose: 10 ml Sodium Chloride (Saline Flush) 2.5 ml FLUSH ASDIRECTED PRN PRN Reason: Keep Vein Open Last Admin: 03/27/19 09:19 Dose: 2.5 ml Discontinued Medications Aspirin (Aspirin) 324 mg PO ONETIME ONE Stop: 03/27/19 09:02 Last Admin: 03/27/19 09:14 Dose: 324 mg Al Hydroxide/Mg Hydroxide 15 (ml/ Lidocaine HCl 5 ml) 0 ml PO ONETIME ONE Stop: 03/27/19 10:47 Last Admin: 03/27/19 12:21 Dose: 5 each Al Hydroxide/Mg Hydroxide 15 (ml/ Lidocaine HCl 5 ml) 0 ml PO ONETIME ONE Stop: 03/27/19 12:16 Last Admin: 03/27/19 16:13 Dose: Not Given Sodium Chloride (Normal Saline) 250 mls @ 999 mls/hr IV STAT NEEMA Last Admin: 03/27/19 09:47 Dose: 999 mls/hr Morphine Sulfate (Morphine) 2 mg IVPUSH ONETIME ONE Stop: 03/27/19 09:24 Last Admin: 03/27/19 09:57 Dose: 2 mg Ondansetron HCl (Zofran) 4 mg IVPUSH ONETIME ONE Stop: 03/27/19 09:25 Last Admin: 03/27/19 09:31 Dose: 4 mg Ondansetron HCl (Zofran) 4 mg IVPUSH ONETIME ONE Stop: 03/27/19 09:50 Last Admin: 03/27/19 09:53 Dose: 4 mg Original Note: <Samantha Anand M - Last Filed: 03/28/19 12:10> Discharge Summary - Hospital Course Brief History: This 78 year old male with pmh of CAD with stents in distal and proximal LAD, HTN, and R sided cochlear implant presented to the ED this morning after he started having chest pain at work. 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 He reports the pain as mid sternal with some pressure. No shortness of breath or radiation of the pain. No nausea or diaphoresis. He reports he has been getting chiropractic adjustments quite intensively recently due to back pain. Most recent was on Sunday or Sunday. He denies orthopnea. He is able to climb a flight of stairs with out chest pain or dyspnea. He is quite active with work. He has been feeling well recently no acute illness, fevers or sinus congestion. No breathing concerns. He denies alcohol use or tobacco use. He has not seen Dr Flores or other sas sql developer in over a year. He continues to take his Plavix and ASA along with statin and Losartan. Last stress test and ECHO were over 2 years ago. In the ED, labwork WNL. Troponin negative. EKG SR with no acute ST elevation or changes. CXR revealed trace L basilar atelectasis versus infiltrate. Possible 11 mm nodule within the left lung base, non urgent CT recommended. He ws give nitro x 1, Morphine ASA in the ED. He reports pain subsided on its own and none of the medicines really helped. He will be admitted observation for chest pain rule out ACS. PCP, GRECIA Enriquez Diagnosis: Stroke: No - Discharge Data Discharge Date: 03/28/19 Discharge Disposition: Home, Self-Care 01 Condition: Good - Discharge Diagnosis/Problem(s) (1) Chest pain SNOMED Code(s): 72506177 ICD Code: R07.9 - CHEST PAIN, UNSPECIFIED Status: Acute Qualifiers: Chest pain type: other chest pain Qualified Code(s): R07.89 - Other chest pain; R07.8 - Other chest pain (2) HTN (hypertension) SNOMED Code(s): 94484768 ICD Code: I10 - ESSENTIAL (PRIMARY) HYPERTENSION Status: Chronic Qualifiers: Hypertension type: essential hypertension Qualified Code(s): I10 - Essential (primary) hypertension (3) CAD (coronary artery disease) SNOMED Code(s): 78131013 ICD Code: I25.10 - ATHSCL HEART DISEASE OF [place] CORONARY ARTERY W/O ANG PCTRS Status: Chronic Qualifiers: Coronary Disease-Associated Artery/Lesion type: [place] artery [place] vs. transplanted heart: [place] heart Associated angina: without angina Qualified Code(s): I25.10 - Atherosclerotic heart disease of [place] coronary artery without angina pectoris (4) Presence of stent in LAD coronary artery SNOMED Code(s): 724716743332904, 029987175975154 ICD Code: Z95.5 - PRESENCE OF CORONARY ANGIOPLASTY IMPLANT AND GRAFT Status : Chronic (5) Hiatal hernia SNOMED Code(s): 18904826 ICD Code: K44.9 - DIAPHRAGMATIC HERNIA WITHOUT OBSTRUCTION OR GANGRENE Status: Chronic (6) Cochlear implant in place SNOMED Code(s): 372576273 ICD Code: Z96.21 - COCHLEAR IMPLANT STATUS Status: Chronic Priority: Low (7) Obstructive sleep apnea on CPAP SNOMED Code(s): 25761138 ICD Code: G47.33 - OBSTRUCTIVE SLEEP APNEA (ADULT) (PEDIATRIC) Status: Chronic Priority: Medium - Patient Summary/Data Consults: Consultations 03/27/19 11:44 Consult to Environmental Engineer [CONS] Routine - Patient Instructions Diet: Heart Healthy Diet Activity: No Strenuous Activities Showering/Bathing: May Shower Notify Provider of: Fever, Increased Pain, Swelling and Redness, Drainage, Nausea and/or Vomiting - Discharge Plan *PRESCRIPTION DRUG MONITORING PROGRAM REVIEWED*: Not Applicable *COPY OF PRESCRIPTION DRUG MONITORING REPORT IN PATIENT JEREMY: Not Applicable Prescriptions/Med Rec: Pantoprazole Sodium [Protonix] 40 mg PO DAILY #30 tablet. Home Medications: Home Meds Psyllium Husk [Metamucil] 1 dose PO ASDIRECTED 09/24/15 [History] Aspirin 1 tab PO BEDTIME 11/08/18 [History] Clopidogrel [Plavix] 75 mg PO DAILY 11/08/18 [History] Losartan [Cozaar] 12.5 mg PO DAILY 11/08/18 [History] atorvaSTATin [Lipitor] 40 mg PO BEDTIME 11/08/18 [History] Pantoprazole Sodium [Protonix] 40 mg PO DAILY #30 tablet. 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 Pain is resolved. Troponins have been negative. I spoke with Dr Flores, Cardiology. He knows patient well and will see him as outpatient and arrange stress test. He was noted to be borderline DM he spoke with extruder operator helper regarding borderline DM. He is to monitor food intake and should have this rechecked in 3 months with PCP. He is to continue taking all his previous prescriptions. He is to return to the ED or clinic if concerns should arise. - General Info Date of Service: 03/28/19 Admission Dx/Problem (Free Text: Admission Diagnosis/Problem Admission Diagnosis/Problem Chest pain Subjective Update: feeling good this morning, no pain. Feels the discomfort was from his hiatal hernia. No chest pain or SOB. Requesting discharge home this morning. Functional Status: Reports: Pain Controlled, Tolerating Diet, Ambulating, Urinating - Review of Systems General: Reports: No Symptoms. Denies: Weakness, Fatigue, Malaise HEENT: Reports: No Symptoms. Denies: Headaches, Sore Throat, Visual Changes Pulmonary: Reports: No Symptoms. Denies: Shortness of Breath Cardiovascular: Reports: No Symptoms. Denies: Chest Pain Gastrointestinal: Reports: No Symptoms. Denies: Abdominal Pain, Nausea, Vomiting Genitourinary: Reports: No Symptoms Musculoskeletal: Reports: No Symptoms Skin: Reports: No Symptoms Neurological: Reports: No Symptoms Psychiatric: Reports: No Symptoms - Patient Data Vitals - Most Recent: Last Vital Signs Temp 98.3 F 03/28/19 08:00 Pulse 100 03/28/19 08:00 Resp 14 03/28/19 08:00 BP 120/63 03/28/19 04:00 Pulse Ox 93 L 03/28/19 04:00 Weight - Most Recent: 86.183 kg I&O - Last 24 hours: Intake & Output 03/27/19 03/28/19 03/28/19 22:59 06:59 14:59 Intake Total 435 350 Output Total 225 325 Balance 210 25 Lab Results - Last 24 hrs: Laboratory Results - last 24 hr 03/27/19 03/27/19 03/27/19 Range/Units 09:07 09:07 09:07 WBC 7.26 (4.0-11.0) K/uL RBC 4.74 (4.50-5.90) M/uL Hgb 14.2 (13.0-17.0) g/dL Hct 44.7 (38.0-50.0) % MCV 94.3 (80.0-98.0) fL MCH 30.0 (27.0-32.0) pg MCHC 31.8 (31.0-37.0) g/dL RDW Std Deviation 47.0 (28.0-62.0) fl RDW Coeff of Sonya 14 (11.0-15.0) % Plt Count 199 (150-400) K/uL MPV 10.60 (7.40-12.00) fL Neut % (Auto) 64.6 (48.0-80.0) % Lymph % (Auto) 22.3 (16.0-40.0) % [place] % (Auto) 8.1 (0.0-15.0) % Eos % (Auto) 4.3 (0.0-7.0) % Baso % (Auto) 0.7 (0.0-1.5) % Neut # (Auto) 4.7 (1.4-5.7) K/uL Lymph # (Auto) 1.6 (0.6-2.4) K/uL [place] # (Auto) 0.6 (0.0-0.8) K/uL Eos # (Auto) 0.3 (0.0-0.7) K/uL Baso # (Auto) 0.1 (0.0-0.1) K/uL Nucleated RBC % 0.0 /100WBC Nucleated RBCs # 0 K/uL Sodium 136 (136-148) mmol/L Potassium 4.9 (3.5-5.1) mmol/L Chloride 103 (98-107) mmol/L Carbon Dioxide 29.8 (21.0-32.0) mmol/L BUN 25 H (7.0-18.0) mg/dL Creatinine 1.0 (0.8-1.3) mg/dL Est Cr Clr Drug Dosing 50.16 mL/min Estimated GFR (MDRD) > 60.0 ml/min Glucose 104 (74-106) mg/dL Hemoglobin A1c 6.4 H (4.5-6.2) % Calcium 9.2 (8.5-10.1) mg/dL Total Bilirubin 0.4 (0.2-1.0) mg/dL AST 23 (15-37) IU/L ALT 20 (14-63) IU/L Alkaline Phosphatase 97 (46-116) U/L Troponin I < 0.050 (0.000-0.056) ng/mL Total Protein 8.1 (6.4-8.2) g/dL Albumin 4.1 (3.4-5.0) g/dL Globulin 4.0 (2.6-4.0) g/dL Albumin/Globulin Ratio 1.0 (0.9-1.6) Triglycerides (0-200) mg/dL Cholesterol (50-200) mg/dL LDL Cholesterol, Calc (60-180) mg/dL VLDL Cholesterol (5-55) mg/dL HDL Cholesterol (40-60) mg/dL Cholesterol/HDL Ratio (3.3-6.0) Urine Color Urine Appearance Urine pH (5.0-8.0) Ur Specific [place] (1.001-1.035) Urine Protein (NEGATIVE) mg/dL Urine Glucose (UA) (NEGATIVE) mg/dL Urine Ketones (NEGATIVE) mg/dL Urine Occult Blood (NEGATIVE) Urine Nitrite (NEGATIVE) Urine Bilirubin (NEGATIVE) Urine Urobilinogen (<2.0) EU/dL Ur Leukocyte Esterase (NEGATIVE) 03/27/19 03/27/19 03/27/19 Range/Units 10:50 15:07 20:52 WBC (4.0-11.0) K/uL RBC (4.50-5.90) M/uL Hgb (13.0-17.0) g/dL Hct (38.0-50.0) % MCV (80.0-98.0) fL MCH (27.0-32.0) pg MCHC (31.0-37.0) g/dL RDW Std Deviation (28.0-62.0) fl RDW Coeff of Sonya (11.0-15.0) % Plt Count (150-400) K/uL MPV (7.40-12.00) fL Neut % (Auto) (48.0-80.0) % Lymph % (Auto) (16.0-40.0) % [place] % (Auto) (0.0-15.0) % Eos % (Auto) (0.0-7.0) % Baso % (Auto) (0.0-1.5) % Neut # (Auto) (1.4-5.7) K/uL Lymph # (Auto) (0.6-2.4) K/uL [place] # (Auto) (0.0-0.8) K/uL Eos # (Auto) (0.0-0.7) K/uL Baso # (Auto) (0.0-0.1) K/uL Nucleated RBC % /100WBC Nucleated RBCs # K/uL Sodium (136-148) mmol/L Potassium (3.5-5.1) mmol/L Chloride (98-107) mmol/L Carbon Dioxide (21.0-32.0) mmol/L BUN (7.0-18.0) mg/dL Creatinine (0.8-1.3) mg/dL Est Cr Clr Drug Dosing mL/min Estimated GFR (MDRD) ml/min Glucose (74-106) mg/dL Hemoglobin A1c (4.5-6.2) % Calcium (8.5-10.1) mg/dL Total Bilirubin (0.2-1.0) mg/dL AST (15-37) IU/L ALT (14-63) IU/L Alkaline Phosphatase (46-116) U/L Troponin I < 0.050 < 0.050 (0.000-0.056) ng/mL Total Protein (6.4-8.2) g/dL Albumin (3.4-5.0) g/dL Globulin (2.6-4.0) g/dL Albumin/Globulin Ratio (0.9-1.6) Triglycerides (0-200) mg/dL Cholesterol (50-200) mg/dL LDL Cholesterol, Calc (60-180) mg/dL VLDL Cholesterol (5-55) mg/dL HDL Cholesterol (40-60) mg/dL Cholesterol/HDL Ratio (3.3-6.0) Urine Color YELLOW Urine Appearance CLEAR Urine pH 6.0 (5.0-8.0) Ur Specific [place] 1.025 (1.001-1.035) Urine Protein NEGATIVE (NEGATIVE) mg/dL Urine Glucose (UA) NEGATIVE (NEGATIVE) mg/dL Urine Ketones NEGATIVE (NEGATIVE) mg/dL Urine Occult Blood NEGATIVE (NEGATIVE) Urine Nitrite NEGATIVE (NEGATIVE) Urine Bilirubin NEGATIVE (NEGATIVE) Urine Urobilinogen 0.2 (<2.0) EU/dL Ur Leukocyte Esterase NEGATIVE (NEGATIVE) 03/28/19 Range/Units 05:23 WBC (4.0-11.0) K/uL RBC (4.50-5.90) M/uL Hgb (13.0-17.0) g/dL Hct (38.0-50.0) % MCV (80.0-98.0) fL MCH (27.0-32.0) pg MCHC (31.0-37.0) g/dL RDW Std Deviation (28.0-62.0) fl RDW Coeff of Sonya (11.0-15.0) % Plt Count (150-400) K/uL MPV (7.40-12.00) fL Neut % (Auto) (48.0-80.0) % Lymph % (Auto) (16.0-40.0) % [place] % (Auto) (0.0-15.0) % Eos % (Auto) (0.0-7.0) % Baso % (Auto) (0.0-1.5) % Neut # (Auto) (1.4-5.7) K/uL Lymph # (Auto) (0.6-2.4) K/uL [place] # (Auto) (0.0-0.8) K/uL Eos # (Auto) (0.0-0.7) K/uL Baso # (Auto) (0.0-0.1) K/uL Nucleated RBC % /100WBC Nucleated RBCs # K/uL Sodium (136-148) mmol/L Potassium (3.5-5.1) mmol/L Chloride (98-107) mmol/L Carbon Dioxide (21.0-32.0) mmol/L BUN (7.0-18.0) mg/dL Creatinine (0.8-1.3) mg/dL Est Cr Clr Drug Dosing mL/min Estimated GFR (MDRD) ml/min Glucose (74-106) mg/dL Hemoglobin A1c (4.5-6.2) % Calcium (8.5-10.1) mg/dL Total Bilirubin (0.2-1.0) mg/dL AST (15-37) IU/L ALT (14-63) IU/L Alkaline Phosphatase (46-116) U/L Troponin I (0.000-0.056) ng/mL Total Protein (6.4-8.2) g/dL Albumin (3.4-5.0) g/dL Globulin (2.6-4.0) g/dL Albumin/Globulin Ratio (0.9-1.6) Triglycerides 51 (0-200) mg/dL Cholesterol 103 (50-200) mg/dL LDL Cholesterol, Calc 46 L (60-180) mg/dL VLDL Cholesterol 10 (5-55) mg/dL HDL Cholesterol 47 (40-60) mg/dL Cholesterol/HDL Ratio 2.2 L (3.3-6.0) Urine Color Urine Appearance Urine pH (5.0-8.0) Ur Specific [place] (1.001-1.035) Urine Protein (NEGATIVE) mg/dL Urine Glucose (UA) (NEGATIVE) mg/dL Urine Ketones (NEGATIVE) mg/dL Urine Occult Blood (NEGATIVE) Urine Nitrite (NEGATIVE) Urine Bilirubin (NEGATIVE) Urine Urobilinogen (<2.0) EU/dL Ur Leukocyte Esterase (NEGATIVE) Med Orders - Current: Current Medications Acetaminophen (Tylenol) 650 mg PO Q4H PRN PRN Reason: Pain (mild 1-3) Last Admin: 03/27/19 22:40 Dose: 650 mg Heparin Sodium (Porcine) (Heparin Sodium) 5,000 units SUBCUT Q12H NEEMA Last Admin: 03/27/19 22:39 Dose: 5,000 units Nitroglycerin (Nitrostat) 0.4 mg SL Q5M PRN PRN Reason: Chest Pain Last Admin: 03/27/19 09:16 Dose: 0.4 mg Ondansetron HCl (Zofran Odt) 4 mg PO Q4H PRN PRN Reason: nausea, able to take PO Sodium Chloride (Saline Flush) 10 ml FLUSH ASDIRECTED PRN PRN Reason: Keep Vein Open Last Admin: 03/27/19 09:19 Dose: 10 ml Sodium Chloride (Saline Flush) 2.5 ml FLUSH ASDIRECTED PRN PRN Reason: Keep Vein Open Last Admin: 03/27/19 09:19 Dose: 2.5 ml Discontinued Medications Aspirin (Aspirin) 324 mg PO ONETIME ONE Stop: 03/27/19 09:02 Last Admin: 03/27/19 09:14 Dose: 324 mg Al Hydroxide/Mg Hydroxide 15 (ml/ Lidocaine HCl 5 ml) 0 ml PO ONETIME ONE Stop: 03/27/19 10:47 Last Admin: 03/27/19 12:21 Dose: 5 each Al Hydroxide/Mg Hydroxide 15 (ml/ Lidocaine HCl 5 ml) 0 ml PO ONETIME ONE Stop: 03/27/19 12:16 Last Admin: 03/27/19 16:13 Dose: Not Given Sodium Chloride (Normal Saline) 250 mls @ 999 mls/hr IV STAT NEEMA Last Admin: 03/27/19 09:47 Dose: 999 mls/hr Morphine Sulfate (Morphine) 2 mg IVPUSH ONETIME ONE Stop: 03/27/19 09:24 Last Admin: 03/27/19 09:57 Dose: 2 mg Ondansetron HCl (Zofran) 4 mg IVPUSH ONETIME ONE Stop: 03/27/19 09:25 Last Admin: 03/27/19 09:31 Dose: 4 mg Ondansetron HCl (Zofran) 4 mg IVPUSH ONETIME ONE Stop: 03/27/19 09:50 Last Admin: 03/27/19 09:53 Dose: 4 mg - Exam General: Reports: Alert, Oriented, Cooperative, No Acute Distress Neck: Reports: Supple Lungs: Reports: Clear to Auscultation, Normal Respiratory Effort Cardiovascular: Reports: Regular Rate, Regular Rhythm (Male) Exam: No Hernia Back Exam: Reports: Normal Inspection, Full Range of Motion Extremities: Normal Inspection, Normal Range of Motion, Non-Tender, No Pedal Edema Neurological: Reports: No New Focal Deficit Psy/Mental Status: Reports: Alert, Normal Affect, Normal Mood <Ranulfo Steward - Last Filed: 03/28/19 14:02> Discharge Summary - Hospital Course HPI Initial Comments: I have seen and examined to patient independently of Abbey Anand CNP. I have discussed the case for care of this patient with her. I have reviewed and approve of the plan of care as outlined by her. Please see orders. - Patient Summary/Data Consults: Consultations 03/27/19 11:44 Consult to Environmental Engineer [CONS] Routine - Patient Data Vitals - Most Recent: Last Vital Signs Temp 36.8 C 03/28/19 08:00 Pulse 100 03/28/19 08:00 Resp 14 03/28/19 08:00 BP 120/63 03/28/19 04:00 Pulse Ox 93 L 03/28/19 04:00 I&O - Last 24 hours: Intake & Output 03/27/19 03/28/19 03/28/19 22:59 06:59 14:59 Intake Total 435 350 360 Output Total 225 325 200 Balance 210 25 160 Lab Results - Last 24 hrs: Laboratory Results - last 24 hr 03/27/19 03/27/19 03/28/19 Range/Units 15:07 20:52 05:23 Troponin I < 0.050 < 0.050 (0.000-0.056) ng/mL Triglycerides 51 (0-200) mg/dL Cholesterol 103 (50-200) mg/dL LDL Cholesterol, Calc 46 L (60-180) mg/dL VLDL Cholesterol 10 (5-55) mg/dL HDL Cholesterol 47 (40-60) mg/dL Cholesterol/HDL Ratio 2.2 L (3.3-6.0) Med Orders - Current: Current Medications Discontinued Medications Acetaminophen (Tylenol) 650 mg PO Q4H PRN PRN Reason: Pain (mild 1-3) Last Admin: 03/27/19 22:40 Dose: 650 mg Aspirin (Aspirin) 324 mg PO ONETIME ONE Stop: 03/27/19 09:02 Last Admin: 03/27/19 09:14 Dose: 324 mg Al Hydroxide/Mg Hydroxide 15 (ml/ Lidocaine HCl 5 ml) 0 ml PO ONETIME ONE Stop: 03/27/19 10:47 Last Admin: 03/27/19 12:21 Dose: 5 each Al Hydroxide/Mg Hydroxide 15 (ml/ Lidocaine HCl 5 ml) 0 ml PO ONETIME ONE Stop: 03/27/19 12:16 Last Admin: 03/27/19 16:13 Dose: Not Given Heparin Sodium (Porcine) (Heparin Sodium) 5,000 units SUBCUT Q12H NEEMA Last Admin: 03/28/19 11:04 Dose: Not Given Sodium Chloride (Normal Saline) 250 mls @ 999 mls/hr IV STAT NEEMA Last Admin: 03/27/19 09:47 Dose: 999 mls/hr Morphine Sulfate (Morphine) 2 mg IVPUSH ONETIME ONE Stop: 03/27/19 09:24 Last Admin: 03/27/19 09:57 Dose: 2 mg Nitroglycerin (Nitrostat) 0.4 mg SL Q5M PRN PRN Reason: Chest Pain Last Admin: 03/27/19 09:16 Dose: 0.4 mg Ondansetron HCl (Zofran) 4 mg IVPUSH ONETIME ONE Stop: 03/27/19 09:25 Last Admin: 03/27/19 09:31 Dose: 4 mg Ondansetron HCl (Zofran) 4 mg IVPUSH ONETIME ONE Stop: 03/27/19 09:50 Last Admin: 03/27/19 09:53 Dose: 4 mg Ondansetron HCl (Zofran Odt) 4 mg PO Q4H PRN PRN Reason: nausea, able to take PO Sodium Chloride (Saline Flush) 10 ml FLUSH ASDIRECTED PRN PRN Reason: Keep Vein Open Last Admin: 03/27/19 09:19 Dose: 10 ml Sodium Chloride (Saline Flush) 2.5 ml FLUSH ASDIRECTED PRN PRN Reason: Keep Vein Open Last Admin: 03/27/19 09:19 Dose: 2.5 ml
[2019-03-28] MEDS: Heparin Sodium 5,000 Units/ML Vial SUBCUT SCH (11:04)
--- NOTE | 2019-03-31 16:19 | ECHO ---
EXAM DATE: 03/27/19 PATIENT'S AGE: 78 The echocardiogram report can be seen in this patient's EMR (Electronic Medical Record) in the Reports section. The report has also been scanned into PACs. FRANCIA
== END 2019-03-28 10:30 | disposition home or self-care (01) ==
LOC: MW.ED 08:58 → MW.MS 10:38 → MW.OB 18:16 → MW.MS 18:43
PROVIDERS: ADMIT Internal Medicine; ATTEND Internal Medicine
DX: R07.89 Other chest pain (principal); I10 Essential (primary) hypertension; I25.10 Atherosclerotic heart disease of native coronary artery without angina pectoris; K44.9 Diaphragmatic hernia without obstruction or gangrene; G47.33 Obstructive sleep apnea (adult) (pediatric); K21.9 Gastro-esophageal reflux disease without esophagitis; E11.9 Type 2 diabetes mellitus without complications; E78.00 Pure hypercholesterolemia, unspecified; Z79.02 Long term (current) use of antithrombotics/antiplatelets; Z79.82 Long term (current) use of aspirin; Z79.899 Other long term (current) drug therapy; Z95.5 Presence of coronary angioplasty implant and graft; Z96.21 Cochlear implant status; Z99.89 Dependence on other enabling machines and devices
CPT/HCPCS: 36415; 71045; 80053; 80061; 81003; 83036; 84484; 85025; 93005; 93306; 96374; 96375; 99285; A9270; J1644; J2270; J2405; J7050; 96372; 99284; G0378

== ENCOUNTER 2019-09-03 07:39 | Day surgery (SDC) | payer MEDICARE, OTHER ==
[~2019-09-03 07:39] MED LIST: Lactated Ringers 1,000 ML IV SCH; ceFAZolin 2 GM in Premix Bag 1 BAG IV ONE
--- NOTE | 2019-09-03 08:22 | PCM.PREANE ---
Preanesthetic Assessment - Anesthesia/Transfusion/Family Hx Anesthesia History: Prior Anesthesia Without Reaction Other Type of Anesthesia Reaction Comment: Spouse denies any known problem in past, no known family hx; Family History of Anesthesia Reaction: No Transfusion History: No Prior Transfusion(s) Intubation History: Unknown - Review of Systems General: No Symptoms Pulmonary: No Symptoms Cardiovascular: No Symptoms Gastrointestinal: No Symptoms Neurological: No Symptoms Other: Reports: None - Physical Assessment Height: 5 ft 5 in Weight: 86.183 kg ASA Class: 3 Mental Status: Alert & Oriented x3 Airway Class: Mallampati = 2 Dentition: Reports: Normal Dentition, [place](s) (multiple upper front) Thyro-Mental Finger Breadths: 3 Mouth Opening Finger Breadths: 3 ROM/Head Extension: Limited/Partial Lungs: Clear to Auscultation, Normal Respiratory Effort Cardiovascular: Regular Rate, Regular Rhythm - Allergies Allergies/Adverse Reactions: Allergies Allergy/AdvReac Type Severity Reaction Status Date / Time lisinopril Allergy Cough Verified 08/29/19 12:24 - Blood Blood Available: No - Anesthesia Plan Pre-Op Medication Ordered: None - Acknowledgements Anesthesia Type Planned: MAC Pt an Appropriate Candidate for the Planned Anesthesia: Yes Alternatives and Risks of Anesthesia Discussed w Pt/Guardian: Yes Pt/Guardian Understands and Agrees with Anesthesia Plan: Yes PreAnesthesia Questionnaire HEENT History: Reports: Hard of Hearing Other HEENT History: wears glasses, cochlear implant R side Cardiovascular History: Reports: High Cholesterol, Hypertension, Stents (3 years ago), Other (See Below) (walks 8 miles on treadmill) Respiratory History: Reports: Sleep Apnea Other Respiratory History: uses CPAP Gastrointestinal History: Reports: Diverticulosis, GERD Other Gastrointestinal History: hx diverticulitis, hiatal hernia Genitourinary History: Reports: Renal Calculus Musculoskeletal History: Reports: Other (See Below) Other Musculoskeletal History: occasional back pain Neurological History: Reports: None Psychiatric History: Reports: None Endocrine/Metabolic History: Reports: Obesity/BMI 30+ Hematologic History: Reports: None Immunologic History: Reports: None Oncologic (Cancer) History: Reports: None Dermatologic History: Reports: None - Infectious Disease History Infectious Disease History: Reports: Chicken Pox, Measles - Past Surgical History Head Surgeries/Procedures: Reports: None HEENT Surgical History: Reports: Cataract Surgery, Other (See Below) Other HEENT Surgeries/Procedures: cochlear implant R side Cardiovascular Surgical History: Reports: Coronary Artery Stent Respiratory Surgical History: Reports: None GI Surgical History: Reports: Colonoscopy Male Surgical History: Reports: Lithotripsy ([facility]), Vasectomy Endocrine Surgical History: Reports: None Neurological Surgical History: Reports: None Musculoskeletal Surgical History: Reports: None Oncologic Surgical History: Reports: None Dermatological Surgical History: Reports: None - SUBSTANCE USE Smoking Status *Q: Never Smoker Recreational Drug Use History: No - HOME MEDS Home Medications: Home Meds Psyllium Husk [Metamucil] 1 dose PO ASDIRECTED PRN 09/24/15 [History] Aspirin 81 mg PO BEDTIME 11/08/18 [History] Clopidogrel [Plavix] 75 mg PO DAILY 11/08/18 [History] Losartan [Cozaar] 12.5 mg PO DAILY 11/08/18 [History] atorvaSTATin [Lipitor] 40 mg PO BEDTIME 11/08/18 [History] Calcium Carbonate [Tums] 1 tab.chew CHEW ASDIRECTED PRN 08/29/19 [History] Isosorbide Mononitrate [Isosorbide Mononitrate ER] 30 mg PO DAILY 08/29/19 [ History] Nitroglycerin 0.4 mg SL ASDIRECTED PRN 08/29/19 [History] Triamcinolone Acetonide [Triamcinolone Acetonide 0.025%] 1 applic TOP BID PRN [History] - CURRENT (IN HOUSE) MEDS Current Meds: Current Medications Lactated Ringer's (Ringers, Lactated) 1,000 mls @ 125 mls/hr IV ASDIRECTED [facility] Last Admin: 09/03/19 08:18 Dose: 125 mls/hr Discontinued Medications Cefazolin Sodium/Dextrose 2 gm (/ Premix) 50 mls @ 100 mls/hr IV ONETIME ONE Stop: 09/03/19 05:29
[2019-09-03] MEDS ORDERED: Midazolam 1 MG/ML 2 ML SDV ONE (08:46)
[2019-09-03] MEDS ORDERED: fentaNYL 100 MCG/2 ML SDV ONE (08:47)
[2019-09-03] MEDS ORDERED: Propofol 200 MG/20 ML SDV ONE (08:48)
[2019-09-03] MEDS ORDERED: Bupivacaine 25%/EPINEPHrine/PF 30 ML ONE (09:16)
[2019-09-03] MEDS ORDERED: Octyl 2-Cyanoacrylate 1 Tube ONE (09:16)
--- NOTE | 2019-09-03 10:07 | PCM.OPNOTE ---
- General Post-Op/Procedure Note Date of Surgery/Procedure: 09/03/19 Operative Procedure(s): excisional biopsy neck mass Findings: pigmented lesion at left ant neck base, excised incision 2.1 X 1.6 cm; [id number] Pre Op Diagnosis: pigmented skin lesion Post-Op Diagnosis: Same Anesthesia Technique: Local, MAC Primary Surgeon: Tj Smith Pathology: sent Complications: None Condition: Good
--- NOTE | 2019-09-03 10:22 | PCM.POSTAN ---
POST ANESTHESIA ASSESSMENT - MENTAL STATUS Mental Status: Alert, Oriented - VITAL SIGNS Vital Signs: Last Vital Signs Temp Pulse 48 L 09/03/19 10:19 Resp 12 09/03/19 10:19 BP 95/43 L 09/03/19 10:19 Pulse Ox 93 L 09/03/19 10:19 - RESPIRATORY Respiratory Status: Respiratory Rate WNL, Airway Patent, O2 Saturation Stable - CARDIOVASCULAR CV Status: Pulse Rate WNL, Blood Pressure Stable - GASTROINTESTINAL GI Status: No Symptoms - PAIN Pain Score: 0 - POST OP HYDRATION Hydration Status: Adequate & Stable - OBSERVATIONS Free Text/Narrative:: no anesthesia problems
--- NOTE | 2019-09-03 10:46 | OR ---
SURGEON: Tj Smith MD DATE OF PROCEDURE: 09/03/2019 PREOPERATIVE DIAGNOSIS: Pigmented skin lesion on the left neck. POSTOPERATIVE DIAGNOSIS: Pigmented skin lesion on the left neck. PROCEDURE PERFORMED: Excisional biopsy. PRIMARY SURGEON: Tj Smith MD. COMPLICATIONS: None. FINDING: A pigmented lesion with raised border and irregular, about the size of 5 mm, and skin incision is 2.1 x 1.6 cm. DESCRIPTION OF PROCEDURE: The patient was taken to the operating room, placed in supine position. Upon induction of mild general MAC plus local sedation, the patient was prepped and draped in sterile fashion, and using 1% lidocaine with epi, it was infiltrated. A fish-mouth incision was made to excise the whole pigmented lesion with a very generous border and incision was 2.1 x 1.6 cm. Good hemostasis was achieved with electrocautery and the wound was closed with 4 stitches of simple interrupted using 3-0 Ethilon followed with appropriate dressing. The patient was awakened and transferred to recovery in hemodynamically stable condition. The specimen sent to pathology was oriented with 9 o'clock with a long stitch and 3 o'clock with a short stitch. Upon transferring the patient to recovery room, was bone dry, and the patient hemodynamically stable. Dr. Smith was present through the whole surgery. LAURA / MELANIE /[id number]
[2019-09-03 10:58] VITALS: BP 108/53; PULSE 52
--- NOTE | 2019-09-03 11:08 | PCM48HPAN ---
Post Anesthesia Note - EVALUATION WITHIN 48HRS OF ANESTHETIC Vital Signs in Normal Range: Yes Patient Participated in Evaluation: Yes Respiratory Function Stable: Yes Airway Patent: Yes Cardiovascular Function Stable: Yes Hydration Status Stable: Yes Pain Control Satisfactory: Yes Nausea and Vomiting Control Satisfactory: Yes Mental Status Recovered: Yes Vital Signs: Last Vital Signs Temp 36.1 C 09/03/19 10:25 Pulse 52 L 09/03/19 10:45 Resp 16 09/03/19 10:45 BP 108/53 L 09/03/19 10:45 Pulse Ox 94 L 09/03/19 10:45 - COMMENTS/OBSERVATIONS Free Text/Narrative:: NO anesthesia problems
== END 2019-09-03 11:20 | disposition home or self-care (01) ==
LOC: MW.SDS 07:39
PROVIDERS: ATTEND Surgery
DX: L82.1 Other seborrheic keratosis (principal); I25.118 Atherosclerotic heart disease of native coronary artery with other forms of angina pectoris; I11.0 Hypertensive heart disease with heart failure; I50.32 Chronic diastolic (congestive) heart failure; E78.00 Pure hypercholesterolemia, unspecified; G47.33 Obstructive sleep apnea (adult) (pediatric); K21.9 Gastro-esophageal reflux disease without esophagitis; M19.90 Unspecified osteoarthritis, unspecified site; H91.93 Unspecified hearing loss, bilateral; E66.9 Obesity, unspecified; Z68.31 Body mass index [BMI] 31.0-31.9, adult; Z79.82 Long term (current) use of aspirin; Z79.899 Other long term (current) drug therapy; Z88.8 Allergy status to other drugs, medicaments and biological substances; Z99.89 Dependence on other enabling machines and devices; Z95.5 Presence of coronary angioplasty implant and graft
CPT/HCPCS: 11423; 88305; J2250; J2704; J3010; J7120; 00300; A9270-GY

== ENCOUNTER 2020-01-16 20:07 | Observation (INO) | payer MEDICARE, OTHER ==
[2020-01-16] MEDS ORDERED: Aspirin 81 MG Tab.Chew PO ONE (20:19)
[2020-01-16] MEDS ORDERED: Morphine 2 MG/ML Syringe IVPUSH ONE (20:20)
--- NOTE | 2020-01-16 20:23 | EDM.PDOC ---
ED HPI GENERAL MEDICAL PROBLEM - General Chief Complaint: Chest Pain Stated Complaint: CHEST PAIN Time Seen by Provider: 01/16/20 20:08 Source of Information: Reports: Patient History Limitations: Reports: No Limitations - History of Present Illness INITIAL COMMENTS - FREE TEXT/NARRATIVE: HISTORY AND PHYSICAL: History of present illness: Patient is an 79-year-old male who presents to the ED today with concern of nonexertional chest pain that is worsened over the last 3 hours. Patient states he has had a dull sensation over the past 3 days but over the past 3 hours he started having chest pain that he describes as more of a pressure sensation. Patient states he does have a history of acute coronary syndrome and has a stent placed. Patient also has a history of hypertension. Patient states that the chest pain is constant and does not come and go with activity. Patient states the pain does slightly worsen after eating and patient took 3 nitro at home. Patient states he has not taken any aspirin today. Patient states he did not have any improvement of his symptoms with the nitro so came to the ED to be evaluated. Patient denies any associated symptoms. Patient denies fever, chills, shortness of breath, or cough. Denies headache, neck stiff ness, change in vision, syncope, or near syncope. Denies nausea, vomiting, abdominal pain, diarrhea, constipation, or dysuria. Has not noted any blood in urine or stool. Patient has been eating and drinking appropriately. Review of systems: As per history of present illness and below otherwise all systems reviewed and negative. Past medical history: As per history of present illness and as reviewed below otherwise noncontributory. Surgical history: As per history of present illness and as reviewed below otherwise noncontributory. Social history: See social history for further information Family history: As per history of present illness and as reviewed below otherwise noncontributory. Physical exam: General: Patient is alert, oriented, and in no acute distress. Patient sitting comfortably on exam table. HEENT: Atraumatic, normocephalic, pupils equal and reactive bilaterally, negative for conjunctival pallor or scleral icterus, mucous membranes moist, TMs normal bilaterally, throat clear, neck supple, nontender, trachea midline. No drooling or trismus noted. No meningeal signs. No hot potato voice noted. Lungs: Clear to auscultation, breath sounds equal bilaterally, chest nontender. Heart: S1S2, regular rate and rhythm without overt murmur Abdomen: Soft, nondistended, nontender. Negative for masses or hepatosplenomegaly. Negative for costovertebral tenderness. Pelvis: Stable nontender. Genitourinary: Deferred. Rectal: Deferred. Skin: Intact, warm, dry. No lesions or rashes noted. Extremities: Atraumatic, negative for cords or calf pain. Neurovascular unremarkable. Neuro: Awake, alert, oriented. Cranial nerves II through XII unremarkable. Cerebellum unremarkable. Motor and sensory unremarkable throughout. Exam nonfocal. Notes: Dr. Sampson was consulted on patient and will admit to observation on telemetry Voices understanding and is agreeable to plan of care. Denies any further questions or concerns at this time. Diagnostics: EKG, CBC, CMP, UA, CXR, Trop, Lipase Therapeutics: ASA, Nitro, Morphine Impression: Chest pain, r/o ACS Plan: Admit to observation Dr. Sampson on telemetry. Definitive disposition and diagnosis as appropriate pending reevaluation and review of above. Chest Pain Score (Numeric/FACES): 4 - Related Data Allergies Allergy/AdvReac Type Severity Reaction Status Date / Time lisinopril Allergy Cough Verified 01/16/20 20:13 Home Meds: Home Meds Psyllium Husk [Metamucil] 1 dose PO ASDIRECTED PRN 09/24/15 [History] Aspirin 81 mg PO BEDTIME 11/08/18 [History] Clopidogrel [Plavix] 75 mg PO DAILY 11/08/18 [History] Losartan [Cozaar] 12.5 mg PO DAILY 11/08/18 [History] atorvaSTATin [Lipitor] 40 mg PO BEDTIME 11/08/18 [History] Calcium Carbonate [Tums] 1 tab.chew CHEW ASDIRECTED PRN 08/29/19 [History] Isosorbide Mononitrate [Isosorbide Mononitrate ER] 30 mg PO DAILY 08/29/19 [ History] Nitroglycerin 0.4 mg SL ASDIRECTED PRN 08/29/19 [History] Triamcinolone Acetonide [Triamcinolone Acetonide 0.025%] 1 applic TOP BID PRN [History] Past Medical History HEENT History: Reports: Hard of Hearing Other HEENT History: cochlear implant R side Cardiovascular History: Reports: High Cholesterol, Hypertension, Stents (3 years ago), Other (See Below) (walks 8 miles on treadmill) Respiratory History: Reports: Sleep Apnea Other Respiratory History: uses CPAP Gastrointestinal History: Reports: Diverticulosis, GERD Other Gastrointestinal History: hx diverticulitis, hiatal hernia Genitourinary History: Reports: Renal Calculus Musculoskeletal History: Reports: None Other Musculoskeletal History: occasional back pain Neurological History: Reports: None Psychiatric History: Reports: None Endocrine/Metabolic History: Reports: None Hematologic History: Reports: None Immunologic History: Reports: None Oncologic (Cancer) History: Reports: None Dermatologic History: Reports: None - Infectious Disease History Infectious Disease History: Reports: Chicken Pox, Measles - Past Surgical History HEENT Surgical History: Reports: Other (See Below) Social & Family History - Family History Family Medical History: Noncontributory Cardiac: Reports: CAD, Hypertension, [place] Other Cardiac Family History: brothers secondary to coronary artery disease GI: Reports: None : Reports: None - Caffeine Use Caffeine Use: Reports: None - Living Situation & Occupation Living situation: Reports: 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 ED EXAM, GENERAL - Physical Exam Exam: See Below (see dictation) Course - Vital Signs Last Recorded V/S: Last Vital Signs Temp 97.5 F 01/16/20 20:13 Pulse 66 01/16/20 20:30 Resp 16 01/16/20 20:30 BP 123/71 01/16/20 20:30 Pulse Ox 94 L 01/16/20 20:30 - Orders/Labs/Meds Orders: Active Orders 24 hr Category Date Time Status Admission Status [Patient Status] [ADT] Stat ADT 01/16/20 21:07 Ordered Cardiac Monitoring [RC] . DIRECTED Care 01/16/20 20:19 Active EKG Documentation Completion [RC] STAT Care 01/16/20 20:08 Active UA RFX JAS AND CULT IF INDIC [URIN] Stat Lab 01/16/20 20:07 Ordered Nitroglycerin [Nitrostat] Med 01/16/20 20:20 Active 0.4 mg SL Q5M PRN Medication Orders Nitroglycerin (Nitrostat) 0.4 mg SL Q5M PRN PRN Reason: Chest Pain Labs: Laboratory Tests 01/16/20 01/16/20 Range/Units 20:11 20:11 WBC 7.28 (4.0-11.0) K/uL RBC 4.64 (4.50-5.90) M/uL Hgb 14.0 (13.0-17.0) g/dL Hct 44.2 (38.0-50.0) % MCV 95.3 (80.0-98.0) fL MCH 30.2 (27.0-32.0) pg MCHC 31.7 (31.0-37.0) g/dL RDW Std Deviation 46.3 (28.0-62.0) fl RDW Coeff of Sonya 13 (11.0-15.0) % Plt Count 192 (150-400) K/uL MPV 10.90 (7.40-12.00) fL Neut % (Auto) 56.2 (48.0-80.0) % Lymph % (Auto) 29.4 (16.0-40.0) % Hardy % (Auto) 10.0 (0.0-15.0) % Eos % (Auto) 3.6 (0.0-7.0) % Baso % (Auto) 0.8 (0.0-1.5) % Neut # (Auto) 4.1 (1.4-5.7) K/uL Lymph # (Auto) 2.1 (0.6-2.4) K/uL Hardy # (Auto) 0.7 (0.0-0.8) K/uL Eos # (Auto) 0.3 (0.0-0.7) K/uL Baso # (Auto) 0.1 (0.0-0.1) K/uL Nucleated RBC % 0.0 /100WBC Nucleated RBCs # 0 K/uL Sodium 142 (136-148) mmol/L Potassium 3.6 (3.5-5.1) mmol/L Chloride 104 (98-107) mmol/L Carbon Dioxide 34.9 H (21.0-32.0) mmol/L BUN 24 H (7.0-18.0) mg/dL Creatinine 1.0 (0.8-1.3) mg/dL Est Cr Clr Drug Dosing 49.33 mL/min Estimated GFR (MDRD) > 60.0 ml/min Glucose 91 (74-106) mg/dL Calcium 8.7 (8.5-10.1) mg/dL Total Bilirubin 0.4 (0.2-1.0) mg/dL AST 24 (15-37) IU/L ALT 35 (14-63) IU/L Alkaline Phosphatase 130 H (46-116) U/L Troponin I < 0.050 (0.000-0.056) ng/mL Total Protein 7.6 (6.4-8.2) g/dL Albumin 3.8 (3.4-5.0) g/dL Globulin 3.8 (2.6-4.0) g/dL Albumin/Globulin Ratio 1.0 (0.9-1.6) Lipase 127 (73-393) U/L Meds: Medications Generic Name Dose Route Start Last Admin Trade Name Freq PRN Reason Stop Dose Admin Nitroglycerin 0.4 mg 01/16/20 20:20 Nitrostat SL Q5M PRN Chest Pain Discontinued Medications Generic Name Dose Route Start Last Admin Trade Name Freq PRN Reason Stop Dose Admin Aspirin 324 mg 01/16/20 20:19 01/16/20 20:28 Aspirin PO 01/16/20 20:20 324 mg ONETIME ONE Administration Morphine Sulfate 2 mg 01/16/20 20:20 01/16/20 20:29 Morphine IVPUSH 01/16/20 20:21 2 mg ONETIME ONE Administration Departure - Departure Time of Disposition: 21:08 Disposition: Refer to Observation Clinical Impression: Chest pain Qualifiers: Chest pain type: other chest pain Qualified Code(s): R07.89 - Other chest pain - Discharge Information Forms: ED Department Discharge Sepsis Event Note - Evaluation Sepsis Screening Result: No Definite Risk - Focused Exam Vital Signs: Vital Signs Temp Pulse Resp BP Pulse Ox 01/16/20 20:30 66 16 123/71 94 L 01/16/20 20:13 97.5 F 66 16 143/74 H 96 Date Exam was Performed: 01/16/20 Time Exam was Performed: 21:08 - My Orders Last 24 Hours: My Active Orders 01/16/20 20:07 UA RFX JAS AND CULT IF INDIC [URIN] Stat 01/16/20 20:08 EKG Documentation Completion [RC] STAT 01/16/20 20:19 Cardiac Monitoring [RC] . DIRECTED 01/16/20 20:20 Nitroglycerin [Nitrostat] 0.4 mg SL Q5M PRN 01/16/20 21:07 Admission Status [Patient Status] [ADT] Stat - Assessment/Plan Last 24 Hours: My Active Orders 01/16/20 20:07 UA RFX JAS AND CULT IF INDIC [URIN] Stat 01/16/20 20:08 EKG Documentation Completion [RC] STAT 01/16/20 20:19 Cardiac Monitoring [RC] . DIRECTED 01/16/20 20:20 Nitroglycerin [Nitrostat] 0.4 mg SL Q5M PRN 01/16/20 21:07 Admission Status [Patient Status] [ADT] Stat
[2020-01-16 20:42] LABS: BLOOD UREA NITROGEN,BUN 24 mg/dL (7.0-18.0); CARBON DIOXIDE,CO2 34.9 mmol/L (21.0-32.0); CHLORIDE,CL 104 mmol/L (98-107); GLUCOSE RANDOM 91 mg/dL (74-106); LIPASE 127 U/L (73-393); POTASSIUM,K 3.6 mmol/L (3.5-5.1); SODIUM,NA 142 mmol/L (136-148)
--- NOTE | 2020-01-16 20:56 | CR ---
Chest: Portable view of the chest was obtained. Comparison: Prior chest x-ray of 03/27/19. Heart size is within normal limits for portable technique. Mild tortuosity of the thoracic aorta is seen. No acute parenchymal change is seen within either lung. Bony structures are grossly intact. Impression: 1. Nothing acute is seen on portable chest x-ray. Diagnostic code #2 Study was dictated in MDT
[2020-01-16] MEDS: Nitroglycerin 0.4 MG Tab.SL SL PRN ×2 (21:35→21:40)
[2020-01-17] MEDS ORDERED: PSYLLIUM HUSK PO PRN (00:23)
--- NOTE | 2020-01-17 00:26 | PCM.HP.2 ---
H&P History of Present Illness - General Date of Service: 01/17/20 Admit Problem/Dx: Admission Diagnosis/Problem Admission Diagnosis/Problem Chest pain - History of Present Illness Initial Comments - Free Text/Narative: 79 yo male with pmh of CAD who presents with two days of intermittent chest pain. HE describes the pain as substernal across his chest that occurs mainly after eating. He denies any shortness of breath, fevers, or nausea. In the ED he had no signs of ischemia on EKG and negative troponin. Chest Pain Score (Numeric/FACES): 3 - Related Data Allergies/Adverse Reactions: Allergies Allergy/AdvReac Type Severity Reaction Status Date / Time lisinopril Allergy Cough Verified 01/16/20 20:13 Home Medications: Home Meds Psyllium Husk [Metamucil] 1 dose PO ASDIRECTED PRN 09/24/15 [History] Aspirin 81 mg PO BEDTIME 11/08/18 [History] Clopidogrel [Plavix] 75 mg PO DAILY 11/08/18 [History] Losartan [Cozaar] 12.5 mg PO DAILY 11/08/18 [History] atorvaSTATin [Lipitor] 40 mg PO BEDTIME 11/08/18 [History] Calcium Carbonate [Tums] 1 tab.chew CHEW ASDIRECTED PRN 08/29/19 [History] Isosorbide Mononitrate [Isosorbide Mononitrate ER] 30 mg PO DAILY 08/29/19 [ History] Nitroglycerin 0.4 mg SL ASDIRECTED PRN 08/29/19 [History] Triamcinolone Acetonide [Triamcinolone Acetonide 0.025%] 1 applic TOP BID PRN [History] Past Medical History HEENT History: Reports: Hard of Hearing, Other (See Below) Other HEENT History: cochlear implant R side. wears glasses Cardiovascular History: Reports: CAD, High Cholesterol, Hypertension, Stents, Other (See Below) Respiratory History: Reports: Sleep Apnea Other Respiratory History: uses CPAP Gastrointestinal History: Reports: Diverticulosis, GERD Other Gastrointestinal History: hx diverticulitis, hiatal hernia Genitourinary History: Reports: Renal Calculus Musculoskeletal History: Reports: None Other Musculoskeletal History: occasional back pain Neurological History: Reports: None Psychiatric History: Reports: None Endocrine/Metabolic History: Reports: None Hematologic History: Reports: None Immunologic History: Reports: None Oncologic (Cancer) History: Reports: None Dermatologic History: Reports: None - Infectious Disease History Infectious Disease History: Reports: Chicken Pox, Measles - Past Surgical History Head Surgeries/Procedures: Reports: None HEENT Surgical History: Reports: Other (See Below) Cardiovascular Surgical History: Reports: Coronary Artery Stent Male Surgical History: Reports: Lithotripsy (ESWL), Vasectomy Social & Family History - Family History Family Medical History: Noncontributory Cardiac: Reports: CAD, Hypertension, [place] Other Cardiac Family History: brothers secondary to coronary artery disease GI: Reports: None : Reports: None - Tobacco Use Smoking Status *Q: Never Smoker Second Hand Smoke Exposure: No - Caffeine Use Caffeine Use: Reports: Coffee, Soda Caffeine Use Comment: once in a while - Recreational Drug Use Recreational Drug Use: No - Living Situation & Occupation Living situation: Reports: 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 Exam - Exam Exam: See Below - Vital Signs Vital Signs: Last Vital Signs Temp 36.5 C 01/16/20 23:57 Pulse 56 L 01/16/20 23:57 Resp 18 01/16/20 23:57 BP 125/51 L 01/16/20 23:57 Pulse Ox 94 L 01/16/20 23:57 Orthostatic Blood Pressure [ 142/65 Standing] Weight: 85.094 kg - Exam General: Alert, Oriented HEENT: Mucosa Moist & [place] Lungs: Clear to Auscultation, Normal Respiratory Effort Cardiovascular: Regular Rate, Regular Rhythm GI/Abdominal Exam: Normal Bowel Sounds, Soft, Non-Tender Extremities: Non-Tender, No Pedal Edema Skin: Warm, Dry, Intact - Patient Data Lab Results Last 24 hrs: Laboratory Results - last 24 hr 01/16/20 01/16/20 01/16/20 Range/Units 20:11 20:11 23:15 WBC 7.28 (4.0-11.0) K/uL RBC 4.64 (4.50-5.90) M/uL Hgb 14.0 (13.0-17.0) g/dL Hct 44.2 (38.0-50.0) % MCV 95.3 (80.0-98.0) fL MCH 30.2 (27.0-32.0) pg MCHC 31.7 (31.0-37.0) g/dL RDW Std Deviation 46.3 (28.0-62.0) fl RDW Coeff of Sonya 13 (11.0-15.0) % Plt Count 192 (150-400) K/uL MPV 10.90 (7.40-12.00) fL Neut % (Auto) 56.2 (48.0-80.0) % Lymph % (Auto) 29.4 (16.0-40.0) % [place] % (Auto) 10.0 (0.0-15.0) % Eos % (Auto) 3.6 (0.0-7.0) % Baso % (Auto) 0.8 (0.0-1.5) % Neut # (Auto) 4.1 (1.4-5.7) K/uL Lymph # (Auto) 2.1 (0.6-2.4) K/uL [place] # (Auto) 0.7 (0.0-0.8) K/uL Eos # (Auto) 0.3 (0.0-0.7) K/uL Baso # (Auto) 0.1 (0.0-0.1) K/uL Nucleated RBC % 0.0 /100WBC Nucleated RBCs # 0 K/uL Sodium 142 (136-148) mmol/L Potassium 3.6 (3.5-5.1) mmol/L Chloride 104 (98-107) mmol/L Carbon Dioxide 34.9 H (21.0-32.0) mmol/L BUN 24 H (7.0-18.0) mg/dL Creatinine 1.0 (0.8-1.3) mg/dL Est Cr Clr Drug Dosing 49.33 mL/min Estimated GFR (MDRD) > 60.0 ml/min Glucose 91 (74-106) mg/dL Calcium 8.7 (8.5-10.1) mg/dL Total Bilirubin 0.4 (0.2-1.0) mg/dL AST 24 (15-37) IU/L ALT 35 (14-63) IU/L Alkaline Phosphatase 130 H (46-116) U/L Troponin I < 0.050 (0.000-0.056) ng/mL Total Protein 7.6 (6.4-8.2) g/dL Albumin 3.8 (3.4-5.0) g/dL Globulin 3.8 (2.6-4.0) g/dL Albumin/Globulin Ratio 1.0 (0.9-1.6) Lipase 127 (73-393) U/L Urine Color YELLOW Urine Appearance CLEAR Urine pH 8.0 (5.0-8.0) Ur Specific [place] 1.020 (1.001-1.035) Urine Protein NEGATIVE (NEGATIVE) mg/dL Urine Glucose (UA) NEGATIVE (NEGATIVE) mg/dL Urine Ketones NEGATIVE (NEGATIVE) mg/dL Urine Occult Blood NEGATIVE (NEGATIVE) Urine Nitrite NEGATIVE (NEGATIVE) Urine Bilirubin NEGATIVE (NEGATIVE) Urine Urobilinogen 0.2 (<2.0) EU/dL Ur Leukocyte Esterase NEGATIVE (NEGATIVE) Result Diagrams: 01/16/20 20:11 01/16/20 20:11 Sepsis Event Note - Evaluation Sepsis Screening Result: No Definite Risk - Focused Exam Vital Signs: Vital Signs Temp Pulse Resp BP BP Pulse Ox 01/16/20 23:57 36.5 C 56 L 18 125/51 L 94 L 01/16/20 22:24 36.4 C 58 L 20 118/63 95 01/16/20 21:58 57 L 16 105/63 93 L 01/16/20 21:40 105/63 01/16/20 21:35 123/75 01/16/20 20:30 66 16 123/71 94 L 01/16/20 20:13 36.4 C 66 16 143/74 H 96 Date Exam was Performed: 01/17/20 Time Exam was Performed: 10:47 Problem List Initiated/Reviewed/Updated: Yes Orders Last 24hrs: Active Orders 24 hr Category Date Time Status Admission Status [Patient Status] [ADT] Stat ADT 01/16/20 21:07 Active Antiembolic Devices [RC] PER UNIT ROUTINE Care 01/17/20 00:23 Ordered Oxygen Therapy [RC] PRN Care 01/17/20 00:23 Ordered Up ad Teresita [RC] ASDIRECTED Care 01/17/20 00:23 Ordered VTE/DVT Education [RC] PER UNIT ROUTINE Care 01/17/20 00:23 Ordered Vital Signs [RC] Q4H Care 01/17/20 00:23 Ordered Regular Diet [DIET] Diet 01/17/20 Breakfast Ordered TROPONIN I [CHEM] Q6H Lab 01/17/20 02:00 Ordered TROPONIN I [CHEM] Q6H Lab 01/17/20 08:00 Ordered Aspirin Med 01/17/20 21:00 Ordered 81 mg PO BEDTIME Clopidogrel [Plavix] Med 01/17/20 09:00 Ordered 75 mg PO DAILY Isosorbide Mononitrate [Imdur] Med 01/17/20 09:00 Ordered 30 mg PO DAILY Losartan Med 01/17/20 09:00 Ordered 12.5 mg PO DAILY Nitroglycerin [Nitrostat] Med 01/16/20 20:20 Active 0.4 mg SL Q5M PRN Psyllium Husk [Metamucil] Med 01/17/20 00:23 Ordered 1 dose PO ASDIRECTED PRN atorvaSTATin [Lipitor] Med 01/17/20 21:00 Ordered 40 mg PO BEDTIME Sequential Compression Device [OM.PC] Per Unit Routine Oth 01/17/20 00:23 Ordered Medication Orders Aspirin (Aspirin) 81 mg PO BEDTIME NEEMA Atorvastatin Calcium (Lipitor) 40 mg PO BEDTIME NEEMA Clopidogrel Bisulfate (Plavix) 75 mg PO DAILY NEEMA Isosorbide Mononitrate (Imdur) 30 mg PO DAILY NEEMA Nitroglycerin (Nitrostat) 0.4 mg SL Q5M PRN PRN Reason: Chest Pain Last Admin: 01/16/20 21:40 Dose: 0.4 mg Admin: 01/16/20 21:35 Dose: 0.4 mg Non-Formulary Medication (Losartan) 12.5 mg PO DAILY NEEMA Non-Formulary Medication (Psyllium Husk [Metamucil]) 1 dose PO ASDIRECTED PRN PRN Reason: Constipation Assessment/Plan Comment:: 79 yo gentleman who presents with chest pain. He ruled out for acute coronary syndrome with serial negative cardiac enzymes. He had no events on telemetry. He was discharged home to have follow up with [facility].
[2020-01-17 08:32] VITALS: BP 127/57; PULSE 57
[2020-01-17] MEDS ORDERED: Losartan 50 MG Tab PO SCH (09:00)
[2020-01-17] MEDS ORDERED: Isosorbide Mononitrate 30 MG Tab.ER PO SCH (09:00)
[2020-01-17] MEDS ORDERED: Clopidogrel 75 MG Tab PO SCH (09:00)
[2020-01-17] MEDS ORDERED: Aspirin 81 MG Tab.Chew PO SCH (21:00)
[2020-01-17] MEDS ORDERED: atorvaSTATin 40 MG Tab PO SCH (21:00)
== END 2020-01-17 11:15 | disposition home or self-care (01) ==
LOC: MW.ED 20:07 → MW.ICU 21:07 → UNDOADMOB 21:18
PROVIDERS: ADMIT Internal Medicine; ATTEND Internal Medicine
DX: R07.2 Precordial pain (principal); E78.00 Pure hypercholesterolemia, unspecified; I10 Essential (primary) hypertension; Z88.8 Allergy status to other drugs, medicaments and biological substances; Z79.82 Long term (current) use of aspirin; Z79.899 Other long term (current) drug therapy; Z86.79 Personal history of other diseases of the circulatory system; Z95.5 Presence of coronary angioplasty implant and graft
CPT/HCPCS: 36415; 71045; 71045-26; 80053; 81003; 83690; 84484; 85025; 93005; 96374; 99284; 99285-25; A9270-GY; G0378; J2270

== ENCOUNTER 2020-12-28 09:08 | Emergency (ER) | payer MEDICARE, OTHER ==
--- NOTE | 2020-12-28 09:42 | EDM.PDOC ---
ED HPI GENERAL MEDICAL PROBLEM - General Chief Complaint: Chest Pain Stated Complaint: CHEST PAIN Time Seen by Provider: 12/28/20 09:39 Source of Information: Reports: Patient History Limitations: Reports: No Limitations - History of Present Illness INITIAL COMMENTS - FREE TEXT/NARRATIVE: Patient is an 80-year-old male who presents today for chest pain. Patient has a chest pain has been present for the past few weeks. Patient's pain is made worse when he takes a deep breath. Patient has no increased pain on ambulation or exertion. Patient denies any fever chills shortness of breath nausea vomiting. Patient states that he has not taken nitro in the past few weeks his clinic told us that patient took nitro today. Patient dates he took aspirin yesterday. Patient has no other complaints of nausea vomiting or anything else. chest pain Pain Score (Numeric/FACES): 5 - Related Data Allergies Allergy/AdvReac Type Severity Reaction Status Date / Time lisinopril Allergy Cough Verified 01/16/20 20:13 Home Meds: Home Meds Psyllium Husk [Metamucil] 1 dose PO ASDIRECTED PRN 09/24/15 [History] Aspirin 81 mg PO BEDTIME 11/08/18 [History] Clopidogrel [Plavix] 75 mg PO DAILY 11/08/18 [History] Losartan [Cozaar] 12.5 mg PO DAILY 11/08/18 [History] atorvaSTATin [Lipitor] 40 mg PO BEDTIME 11/08/18 [History] Calcium Carbonate [Tums] 1 tab.chew CHEW ASDIRECTED PRN 08/29/19 [History] Isosorbide Mononitrate [Isosorbide Mononitrate ER] 30 mg PO DAILY 08/29/19 [History] Nitroglycerin 0.4 mg SL ASDIRECTED PRN 08/29/19 [History] Triamcinolone Acetonide [Triamcinolone Acetonide 0.025%] 1 applic TOP BID PRN 08/29/19 [History] Past Medical History HEENT History: Reports: Hard of Hearing, Other (See Below) Other HEENT History: cochlear implant R side. wears glasses Cardiovascular History: Reports: CAD, High Cholesterol, Hypertension, Stents, Other (See Below) Respiratory History: Reports: Sleep Apnea Other Respiratory History: uses CPAP Gastrointestinal History: Reports: Diverticulosis, GERD Other Gastrointestinal History: hx diverticulitis, hiatal hernia Genitourinary History: Reports: Renal Calculus Musculoskeletal History: Reports: None Other Musculoskeletal History: occasional back pain Neurological History: Reports: None Psychiatric History: Reports: None Endocrine/Metabolic History: Reports: None Hematologic History: Reports: None Immunologic History: Reports: None Oncologic (Cancer) History: Reports: None Dermatologic History: Reports: None - Infectious Disease History Infectious Disease History: Reports: Chicken Pox, Measles - Past Surgical History Head Surgeries/Procedures: Reports: None HEENT Surgical History: Reports: Other (See Below) Cardiovascular Surgical History: Reports: Coronary Artery Stent Male Surgical History: Reports: Lithotripsy (ESWL), Vasectomy Social & Family History - Family History Family Medical History: No Pertinent Family History Cardiac: Reports: CAD, Hypertension, [place] Other Cardiac Family History: brothers secondary to coronary artery disease GI: Reports: None : Reports: None - Caffeine Use Caffeine Use: Reports: Coffee, Soda Caffeine Use Comment: once in a while - Living Situation & Occupation Living situation: Reports: Occupation: Employed ([employer]) ED ROS GENERAL - Review of Systems Review Of Systems: See Below Constitutional: Reports: No Symptoms HEENT: Reports: No Symptoms Respiratory: Reports: No Symptoms Cardiovascular: Reports: Chest Pain Endocrine: Reports: No Symptoms GI/Abdominal: Reports: No Symptoms : Reports: No Symptoms Musculoskeletal: Reports: No Symptoms Skin: Reports: No Symptoms Neurological: Reports: No Symptoms Psychiatric: Reports: No Symptoms Hematologic/Lymphatic: Reports: No Symptoms Immunologic: Reports: No Symptoms ED EXAM, GENERAL - Physical Exam Exam: See Below Exam Limited By: No Limitations General Appearance: Alert, WD/WN Eye Exam: Bilateral Eye: EOMI, PERRL Respiratory/Chest: No Respiratory Distress, Lungs Clear, Normal Breath Sounds Cardiovascular: Normal Peripheral Pulses, Regular Rate, Rhythm, No Edema GI/Abdominal: Normal Bowel Sounds, Soft, Non-Tender Neurological: Alert, Oriented, CN II-XII Intact #1 Interpretation EKG Date: 12/28/20 Time: 09:20 Rhythm: NSR Rate (Beats/Min): 65 ST-T: Normal Course - Vital Signs Last Recorded V/S: Last Vital Signs Temp 97.0 F 12/28/20 09:20 Pulse 66 12/28/20 09:20 Resp 18 12/28/20 09:20 BP 128/60 12/28/20 09:20 Pulse Ox 95 12/28/20 09:20 - Orders/Labs/Meds Orders: Active Orders 24 hr Category Date Time Status EKG Documentation Completion [RC] STAT Care 12/28/20 09:38 Active Labs: Laboratory Tests 12/28/20 12/28/20 12/28/20 Range/Units 09:33 09:33 12:58 WBC 6.50 (4.0-11.0) K/uL RBC 4.45 L (4.50-5.90) M/uL Hgb 13.7 (13.0-17.0) g/dL Hct 42.6 (38.0-50.0) % MCV 95.7 (80.0-98.0) fL MCH 30.8 (27.0-32.0) pg MCHC 32.2 (31.0-37.0) g/dL RDW Std Deviation 47.9 (28.0-62.0) fl RDW Coeff of Sonya 14 (11.0-15.0) % Plt Count 201 (150-400) K/uL MPV 10.90 (7.40-12.00) fL Neut % (Auto) 63.9 (48.0-80.0) % Lymph % (Auto) 23.2 (16.0-40.0) % [place] % (Auto) 8.2 (0.0-15.0) % Eos % (Auto) 4.2 (0.0-7.0) % Baso % (Auto) 0.5 (0.0-1.5) % Neut # (Auto) 4.2 (1.4-5.7) K/uL Lymph # (Auto) 1.5 (0.6-2.4) K/uL [place] # (Auto) 0.5 (0.0-0.8) K/uL Eos # (Auto) 0.3 (0.0-0.7) K/uL Baso # (Auto) 0.0 (0.0-0.1) K/uL Nucleated RBC % 0.0 /100WBC Nucleated RBCs # 0 K/uL Sodium 137 (136-148) mmol/L Potassium 3.6 (3.5-5.1) mmol/L Chloride 101 (98-107) mmol/L Carbon Dioxide 29.2 (21.0-32.0) mmol/L BUN 29 H (7.0-18.0) mg/dL Creatinine 1.1 (0.8-1.3) mg/dL Est Cr Clr Drug Dosing 44.10 mL/min Estimated GFR (MDRD) > 60.0 ml/min Glucose 157 H (74-106) mg/dL Calcium 8.2 L (8.5-10.1) mg/dL Total Bilirubin 0.7 (0.2-1.0) mg/dL AST 28 (15-37) IU/L ALT 41 (14-63) IU/L Alkaline Phosphatase 93 (46-116) U/L Creatine Kinase 224 195 (26-308) U/L Troponin I < 0.050 < 0.050 (0.000-0.056) ng/mL Total Protein 7.5 (6.4-8.2) g/dL Albumin 3.5 (3.4-5.0) g/dL Globulin 4.0 (2.6-4.0) g/dL Albumin/Globulin Ratio 0.9 (0.9-1.6) Lipase 157 (73-393) U/L - Re-Assessments/Exams Free Text/Narrative Re-Assessment/Exam: 12/28/20 13:33 Patient troponins are negative x2 we attempted have patient be admitted for observation but patient is refusing him his at the bedside she just came from the cancer center and they are refusing to stay. I will give patient a rapid cardiology follow-up. Patient had this chest pain for the past few weeks and troponins are negative today x2 so patient will be discharged. Departure - Departure Time of Disposition: 13:33 Disposition: Home, Self-Care 01 Condition: Good Clinical Impression: Chest pain Qualifiers: Chest pain type: other chest pain Qualified Code(s): R07.89 - Other chest pain Instructions: Nonspecific Chest Pain, Adult Referrals: Maisha Pearson PA [Primary Care Provider] - Forms: ED Department Discharge Additional Instructions: The following information is given to patients seen in the emergency department who are being discharged to home. This information is to outline your options for follow-up care. We provide all patients seen in our emergency department with a follow-up referral. The need for follow-up, as well as the timing and circumstances, are variable depending upon the specifics of your emergency department visit. If you don't have a primary care physician on staff, we will provide you with a referral. We always advise you to contact your personal physician following an e mergency department visit to inform them of the circumstance of the visit and for follow-up with them and/or the need for any referrals to a consulting specialist. The emergency department will also refer you to a specialist when appropriate. This referral assures that you have the opportunity for follow-up care with a specialist. All of these measure are taken in an effort to provide you with op timal care, which includes your follow-up. Under all circumstances we always encourage you to contact your private physician who remains a resource for coordinating your care. When calling for follow-up care, please make the office aware that this follow-up is from your recent emergency room visit. If for any reason you are refused follow-up, please contact the [facility] Emergency Department at and asked to speak to the emergency department charge nurse. Please follow up with your primary care physician. If you do not have a primary care physician, see below: [place] [address] Please attempt to follow-up with handle rounder operator this week. We would like to admit you but she did not want to stay so if he had any increased chest pain please immediately come back to the emergency department. Sepsis Event Note (ED) - Evaluation Sepsis Screening Result: No Definite Risk - Focused Exam Vital Signs: Vital Signs Temp Pulse Resp BP Pulse Ox 12/28/20 09:20 97.0 F 66 18 128/60 95 - My Orders Last 24 Hours: My Active Orders 12/28/20 09:38 EKG Documentation Completion [RC] STAT - Assessment/Plan Last 24 Hours: My Active Orders 12/28/20 09:38 EKG Documentation Completion [RC] STAT Plan: Patient is an 80-year-old male presents today for chest pain for the past few weeks. Due to patient's cardiac history and age patient has a heart score of 4. Patient will likely require admissions however his is at the cancer center and needs a ride home so he may not want to stay. We are attempting the patient will stay for 2 sets of troponins. Will obtain x-ray labs and reassess.
--- NOTE | 2020-12-28 10:27 | CR ---
INDICATION: Chest pain. TECHNIQUE: Chest 1 view Comparison: 01/16/2020 Findings: Cardiomediastinal silhouette is unremarkable. No focal lung consolidation, pleural effusion or pneumothorax. Mild left basilar atelectasis. Bones are unremarkable for age. Impression: No acute cardiopulmonary abnormality. Dictated by Elier Davis MD @ Dec 28 2020 10:25AM Signed by Dr. Elier Davis @ Dec 28 2020 10:26AM
[2020-12-28 10:41] LABS: BLOOD UREA NITROGEN,BUN 29 mg/dL (7.0-18.0); CARBON DIOXIDE,CO2 29.2 mmol/L (21.0-32.0); CHLORIDE,CL 101 mmol/L (98-107); GLUCOSE RANDOM 157 mg/dL (74-106); LIPASE 157 U/L (73-393); POTASSIUM,K 3.6 mmol/L (3.5-5.1); SODIUM,NA 137 mmol/L (136-148)
[2020-12-28 13:45] VITALS: BP 115/61; PULSE 61
== END 2020-12-28 13:45 | disposition home or self-care (01) ==
LOC: MW.ED 09:08
DX: R07.89 Other chest pain (principal); I25.10 Atherosclerotic heart disease of native coronary artery without angina pectoris; E78.00 Pure hypercholesterolemia, unspecified; I10 Essential (primary) hypertension; Z88.8 Allergy status to other drugs, medicaments and biological substances; Z79.82 Long term (current) use of aspirin; Z79.02 Long term (current) use of antithrombotics/antiplatelets; Z79.899 Other long term (current) drug therapy
CPT/HCPCS: 36415; 71045; 71045-26; 80053; 82550; 83690; 84484; 85025; 93005; 93010; 99283; 99285-25